=== PATIENT | female | born 1990 | race Caucasian/White ===

== ENCOUNTER 2016-09-15 16:42 | Emergency (ER) | payer BC, MEDICAID ==
[2016-09-15] MEDS ORDERED: Sodium Chloride 0.9% 2.5 ML Syringe FLUSH PRN (17:55)
[2016-09-15] MEDS ORDERED: Sodium Chloride 0.9% 10 ML Syringe FLUSH PRN (17:55)
[2016-09-15] MEDS ORDERED: fentaNYL 100 MCG/2 ML SDV IVPUSH ONE (18:29)
[2016-09-15 18:58] LABS: CHLORIDE,CL 107 mmol/L (98-110); SODIUM,NA 138 mmol/L (136-146)
--- NOTE | 2016-09-15 19:00 | EDM.PDOC ---
ED HPI GI/ABDOMINAL - General Chief Complaint: CATCHER PLUG Problem Stated Complaint: PT HAS PELVIC PAIN Time Seen by Provider: 09/15/16 16:55 Source of Information: Reports: Patient, Family History Limitations: Reports: No limitations - History of Present Illness INITIAL COMMENTS - FREE TEXT/NARRATIVE: HISTORY AND PHYSICAL: [26-year-old female with history of ovarian cysts/pelvic congestion] History of Present Illness: [pain increased for 2 days ] Review of Systems: As per history of present illness and below otherwise all systems reviewed and negative. Past medical history: As per history of present illness and as reviewed below otherwise noncontributory. Surgical history: As per history of present illness and as reviewed below otherwise noncontributory. Social history: No reported history of drug or alcohol abuse. Family history: As per history of present illness and as reviewed below otherwise noncontributory. Physical exam: HEENT: Atraumatic, normocehpalic, pupils reactive, negative for conjunctival pallor or scleral icterus, mucous membranes moist, throat clear, neck supple, nontender, trachea midline. Lungs: Clear to auscultation, breath sounds equal bilaterally, chest non tender. Heart: S1S2, regular, negative for clicks, rubs, or JVD. Abdomen: Soft, nondistended, nontender. Negative for masses or hepatossplenmegaly. Negative for costovertebral tenderness. Pelvis: Stable nontender. Genitourinary: Deferred. Rectal: Deferred Extremities: Atraumatic, negative for cords or calf pain. Neurovascular unremarkable. Neuro: Awake, alert, oriented. Cranial nerves II through XII unremarkable. Cerebellum unremarkable. Motor and sensory unremarkable throughout. Exam nonfocal. Discussed the results of ultrasound with patient 1.5 mm cyst to her left ovary. Have discussed taking her pain medication she is not to take ibuprofen and Mobic together. 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 Timothy HERRERA [facility] [address] [place] [id number] Definitive disposition and diagnosis as appropriate pending reevaluation and review of above. Timing/Duration: Reports: Day(s):, Sudden onset Location: generalized Quality: Reports: ache, cramping Severity: moderate - Related Data Allergies/ADRs: Allergies Allergy/AdvReac Type Severity Reaction Status Date / Time No Known Allergies Allergy Verified 09/15/16 17:11 Home Meds: Home Meds Ibuprofen 600 mg PO ASDIRECTED PRN 09/15/16 [History] Meloxicam [Mobic] 0 mg PO ASDIRECTED 09/15/16 [History] Past Medical History CATCHER PLUG History: Reports: , Other (see below) Other OB/BYN History: Ovarian Cysts Social & Family History - Family History Family Medical History: Noncontributory - Tobacco Use Smoking Status *Q: Never Smoker - Recreational Drug Use Recreational Drug Use: No ED ROS GENERAL - Review of Systems Review Of Systems: ROS reveals no pertinent complaints other than HPI. ED EXAM, GI/ABD - Physical Exam Exam: See Below (see dictation) Course - Vital Signs Last Recorded V/S: Last Vital Signs Temp 36.6 C 09/15/16 16:50 Pulse 75 09/15/16 18:42 Resp 16 09/15/16 18:42 BP 110/72 09/15/16 18:42 Pulse Ox 97 09/15/16 18:42 - Orders/Labs/Meds Orders: Active Orders 24 hr Category Date Time Status Pelvis Non OB Comp [US] Stat Exams 09/15/16 18:54 Taken Sodium Chloride 0.9% [Saline Flush] Med 09/15/16 17:55 Active 10 ml FLUSH ASDIRECTED PRN Sodium Chloride 0.9% [Saline Flush] Med 09/15/16 17:55 Active 2.5 ml FLUSH ASDIRECTED PRN Saline Lock Insert [OM.PC] Stat Oth 09/15/16 17:55 Ordered Medication Orders Sodium Chloride (Saline Flush) 10 ml FLUSH ASDIRECTED PRN PRN Reason: Keep Vein Open Sodium Chloride (Saline Flush) 2.5 ml FLUSH ASDIRECTED PRN PRN Reason: Keep Vein Open Labs: Laboratory Tests 09/15/16 09/15/16 09/15/16 Range/Units 17:51 17:51 18:26 WBC 7.02 (4.0-11.0) K/uL RBC 4.74 (4.30-5.90) M/uL Hgb 13.4 (12.0-16.0) g/dL Hct 41.2 (36.0-46.0) % MCV 86.9 (80.0-98.0) fL MCH 28.3 (27.0-32.0) pg MCHC 32.5 (31.0-37.0) g/dL RDW Std Deviation 50.8 (28.0-62.0) fl RDW Coeff of Iss[place] 16 H (11.0-15.0) % Plt Count 247 (150-400) K/uL MPV 10.10 (7.40-12.00) fL Neut % (Auto) 64.0 (48.0-80.0) % Lymph % (Auto) 27.6 (16.0-40.0) % [place]ila % (Auto) 6.7 (0.0-15.0) % Eos % (Auto) 1.3 (0.0-7.0) % Baso % (Auto) 0.4 (0.0-1.5) % Neut # 4.5 (1.4-5.7) K/uL Lymph # 1.9 (0.6-2.4) K/uL Gila # 0.5 (0.0-0.8) K/uL Eos # 0.1 (0.0-0.7) K/uL Baso # 0.0 (0.0-0.1) K/uL Nucleated RBC % 0.0 /100WBC Nucleated RBCs # 0 K/uL Sodium (136-146) mmol/L Potassium (3.5-5.1) mmol/L Chloride (98-110) mmol/L Carbon Dioxide (21-31) mmol/L BUN (6.0-23.0) mg/dL Creatinine (0.6-1.5) mg/dL Est Cr Clr Drug Dosing mL/min Estimated GFR (MDRD) ml/min Glucose (60-110) mg/dL Calcium (8.8-10.8) mg/dL Total Bilirubin (0.1-1.5) mg/dL AST (5-40) IU/L ALT (8-54) IU/L Alkaline Phosphatase (40-150) Total Protein (6.0-8.0) g/dL Albumin (3.5-5.0) g/dL Globulin (2.0-3.5) g/dL Albumin/Globulin Ratio (1.3-2.8) Urine Color YELLOW Urine Appearance SLT CLOUDY Urine pH 6.0 (5.0-8.0) Ur Specific [place] 1.020 (1.001-1.035) Urine Protein NEGATIVE (NEGATIVE) mg/dL Urine Glucose (UA) NEGATIVE (NEGATIVE) mg/dL Urine Ketones NEGATIVE (NEGATIVE) mg/dL Urine Occult Blood LARGE H (NEGATIVE) Urine Nitrite NEGATIVE (NEGATIVE) Urine Bilirubin NEGATIVE (NEGATIVE) Urine Urobilinogen 0.2 (<2.0) EU/dL Ur Leukocyte Esterase SMALL (NEGATIVE) Urine RBC 250-300 (0-2/HPF) Urine WBC 4-8 (0-5/HPF) Ur Epithelial Cells FEW (NONE-FEW) Urine Bacteria FEW (NEGATIVE) Urine Opiates Screen NEGATIVE (NEGATIVE) Ur Oxycodone Screen NEGATIVE (NEGATIVE) Urine Methadone Screen NEGATIVE (NEGATIVE) Ur Barbiturates Screen NEGATIVE (NEGATIVE) Ur Phencyclidine Scrn NEGATIVE (NEGATIVE) Ur Amphetamine Screen NEGATIVE (NEGATIVE) U Methamphetamines Scrn NEGATIVE (NEGATIVE) U Benzodiazepines Scrn NEGATIVE (NEGATIVE) U Cocaine Metab Screen NEGATIVE (NEGATIVE) U Marijuana (THC) Screen NEGATIVE (NEGATIVE) 09/15/16 Range/Units 18:26 WBC (4.0-11.0) K/uL RBC (4.30-5.90) M/uL Hgb (12.0-16.0) g/dL Hct (36.0-46.0) % MCV (80.0-98.0) fL MCH (27.0-32.0) pg MCHC (31.0-37.0) g/dL RDW Std Deviation (28.0-62.0) fl RDW Coeff of [place] (11.0-15.0) % Plt Count (150-400) K/uL MPV (7.40-12.00) fL Neut % (Auto) (48.0-80.0) % Lymph % (Auto) (16.0-40.0) % [place] % (Auto) (0.0-15.0) % Eos % (Auto) (0.0-7.0) % Baso % (Auto) (0.0-1.5) % Neut # (1.4-5.7) K/uL Lymph # (0.6-2.4) K/uL [place]ila # (0.0-0.8) K/uL Eos # (0.0-0.7) K/uL Baso # (0.0-0.1) K/uL Nucleated RBC % /100WBC Nucleated RBCs # K/uL Sodium 138 (136-146) mmol/L Potassium 4.0 (3.5-5.1) mmol/L Chloride 107 (98-110) mmol/L Carbon Dioxide 21 (21-31) mmol/L BUN 10 (6.0-23.0) mg/dL Creatinine 0.8 (0.6-1.5) mg/dL Est Cr Clr Drug Dosing 88.93 mL/min Estimated GFR (MDRD) > 60.0 ml/min Glucose 86 (60-110) mg/dL Calcium 9.1 (8.8-10.8) mg/dL Total Bilirubin 0.3 (0.1-1.5) mg/dL AST 20 (5-40) IU/L ALT 12 (8-54) IU/L Alkaline Phosphatase 68 (40-150) Total Protein 7.6 (6.0-8.0) g/dL Albumin 4.2 (3.5-5.0) g/dL Globulin 3.4 (2.0-3.5) g/dL Albumin/Globulin Ratio 1.2 L (1.3-2.8) Urine Color Urine Appearance Urine pH (5.0-8.0) Ur Specific [place] (1.001-1.035) Urine Protein (NEGATIVE) mg/dL Urine Glucose (UA) (NEGATIVE) mg/dL Urine Ketones (NEGATIVE) mg/dL Urine Occult Blood (NEGATIVE) Urine Nitrite (NEGATIVE) Urine Bilirubin (NEGATIVE) Urine Urobilinogen (<2.0) EU/dL Ur Leukocyte Esterase (NEGATIVE) Urine RBC (0-2/HPF) Urine WBC (0-5/HPF) Ur Epithelial Cells (NONE-FEW) Urine Bacteria (NEGATIVE) Urine Opiates Screen (NEGATIVE) Ur Oxycodone Screen (NEGATIVE) Urine Methadone Screen (NEGATIVE) Ur Barbiturates Screen (NEGATIVE) Ur Phencyclidine Scrn (NEGATIVE) Ur Amphetamine Screen (NEGATIVE) U Methamphetamines Scrn (NEGATIVE) U Benzodiazepines Scrn (NEGATIVE) U Cocaine Metab Screen (NEGATIVE) U Marijuana (THC) Screen (NEGATIVE) Meds: Medications Generic Name Dose Route Start Last Admin Trade Name Freq PRN Reason Stop Dose Admin Sodium Chloride 10 ml 09/15/16 17:55 Saline Flush FLUSH ASDIRECTED PRN Keep Vein Open Sodium Chloride 2.5 ml 09/15/16 17:55 Saline Flush FLUSH ASDIRECTED PRN Keep Vein Open Discontinued Medications Generic Name Dose Route Start Last Admin Trade Name Freq PRN Reason Stop Dose Admin Fentanyl 50 mcg 09/15/16 18:29 09/15/16 18:38 Sublimaze IVPUSH 09/15/16 18:30 50 mcg ONETIME ONE Administration Departure - Departure Time of Disposition: 20:13 Disposition: Home, Self-Care 01 Condition: good Clinical Impression: Ovarian cyst Qualifiers: Laterality: left Qualified Code(s): N83.202 - Unspecified ovarian cyst, left side Referrals: PCP,None [Primary Care Provider] - Noah Aguirre MD [Physician] - Forms: ED Department Discharge Additional Instructions: The following information is given to patients seen in the emergency department who are being discharged to home. This information is to outline your options for follow-up care. We provide all patients seen in our emergency department with a follow-up referral. The need for follow-up, as well as the timing and circumstances, are variable depending upon the specifics of your emergency department visit. If you don't have a primary care physician on staff, we will provide you with a referral. We always advise you to contact your personal physician following an emergency department visit to inform them of the circumstance of the visit and for follow-up with them and/or the need for any referrals to a consulting specialist. The emergency department will also refer you to a specialist when appropriate. This referral assures that you have the opportunity for followup care with a specialist. All of these measure are taken in an effort to provide you with optimal care, which includes your followup. Under all circumstances we always encourage you to contact your private physician who remains a resource for coordinating your care. When calling for followup care, please make the office aware that this follow-up is from your recent emergency room visit. If for any reason you are refused follow-up, please contact the [facility] emergency department at and asked to speak to the emergency department charge nurse. Followup with Dr. Aguirre is recommended - My Orders Last 24 Hours: My Active Orders 09/15/16 17:55 Sodium Chloride 0.9% [Saline Flush] 10 ml FLUSH ASDIRECTED PRN Sodium Chloride 0.9% [Saline Flush] 2.5 ml FLUSH ASDIRECTED PRN Saline Lock Insert [OM.PC] Stat 09/15/16 18:54 Pelvis Non OB Comp [US] Stat - Assessment/Plan Last 24 Hours: My Active Orders 09/15/16 17:55 Sodium Chloride 0.9% [Saline Flush] 10 ml FLUSH ASDIRECTED PRN Sodium Chloride 0.9% [Saline Flush] 2.5 ml FLUSH ASDIRECTED PRN Saline Lock Insert [OM.PC] Stat 09/15/16 18:54 Pelvis Non OB Comp [US] Stat
[2016-09-15 20:53] VITALS: BP 103/67
--- NOTE | 2016-09-18 19:14 | US ---
EXAM DATE: 09/15/16 PATIENT'S AGE: 26 Patient: ALBERT JOHNSON Facility: [place], [place] Site . Site : 1990 Study: US Pelvis [id number]/10/2017 7:54:02 PM Ordering Physician: Doctor Milner Final Report: HISTORY: Pelvic pain. FINDINGS: Multiple grayscale static images from a transvaginal pelvic ultrasound were evaluated. Uterus measures 8.5 x 4.3 x 5.6 cm. The echotexture is homogeneous. The endometrial stripe is 14 mm in thickness. There is a small amount of fluid in the cul-de-sac. The right ovary measures 3.8 x 2.4 x 2.2 cm. It is normal appearance with normal blood flow. The left ovary measures 3.0 x 2.1 x 2.2 cm. It contains a dominant 1.5 cm follicle. There is normal blood flow within the left ovary. IMPRESSION: 1. Dominant follicle within the left ovary. 2. No evidence of torsion. 3. Small amount of free fluid in the cul de sac, most likely physiologic. Dictated by Rachel Toure MD @ 09/15/2016 8:18:14 PM Dictated by: Rachel Toure MD @ 09/15/2016 20:18:20 (Electronic Signature) Report Signed by Proxy and Original Signed Document filed in the Medical Record. MTDD
== END 2016-09-15 20:46 | disposition home or self-care (01) ==
LOC: MW.ED 16:42
DX: N83.202 Unspecified ovarian cyst, left side (principal)
CPT/HCPCS: 36415; 76856; 80053; 80305; 81001; 85025; 96374; 99284; J3010

== ENCOUNTER 2016-10-01 12:26 | Inpatient (IN) | payer BC, MEDICAID ==
[2016-10-01] MEDS ORDERED: Sodium Chloride 0.9% 2.5 ML Syringe FLUSH PRN (13:09)
[2016-10-01] MEDS ORDERED: LORazepam 2 MG/ML MDV IVPUSH ONE (13:09)
[2016-10-01] MEDS ORDERED: Sodium Chloride 0.9% 10 ML Syringe FLUSH PRN (13:09)
[2016-10-01] MEDS ORDERED: Sodium Chloride 0.9% 1,000 ML IV ONE ×2 (13:09→15:02)
[2016-10-01] MEDS ORDERED: Ondansetron 4 MG/2 ML SDV IVPUSH ONE (13:09)
--- NOTE | 2016-10-01 13:16 | EDM.PDOC ---
ED HPI GENERAL MEDICAL PROBLEM - General Chief Complaint: Drug or Alcohol Abuse Stated Complaint: ALCOHOL WITHDRAWLS Time Seen by Provider: 10/01/16 12:30 - History of Present Illness INITIAL COMMENTS - FREE TEXT/NARRATIVE: HISTORY AND PHYSICAL: History of present illness: The patient is a 26-year-old female with a history of ovarian cysts and presents with her significant other requesting help with alcohol use/abuse. According to the patient and family she has had issues with alcohol use and she is gone in waves where she'll drink heavily and then she will not drink. THis most recent binge is the worst that she has ever had pretty much all day, hard liquor or beer. The patient has not been eating properly and has had no appetite and she's had intermittent vomiting. She had several falls about 2 weeks ago when she fell out of bed she currently has not had a fall within the last 5 days has no neck pain but does have a posterior headache on and off. She denies any extremity complaints and has upper abdominal discomfort but it's more of a nauseated feeling. She vomits intermittently and says the last time she vomited was prior to coming here and it was what she tried to eat. She did drink 3 beers prior to coming here today. Patient states she went through a rehabilitation program about 2-3 years ago in [place] and has not done anything else patient since that time. Patient denies any drug use and is very tearful on my evaluation. According to the family the right bedside with her drinking she becomes more and more anxious often times not wanting to leave the house for long periods of time even going to the market. The family states it was really challenging even to get her out of the house today to come here but she says that she does want help. Patient states she has irregular periods and isn't sure if she is Review of systems: As per history of present illness and below otherwise all systems reviewed and negative. Past medical history: As per history of present illness and as reviewed below otherwise noncontributory. Surgical history: As per history of present illness and as reviewed below otherwise noncontributory. Social history: No reported history of drug or alcohol abuse. Family history: As per history of present illness and as reviewed below otherwise noncontributory. Physical exam: General: Well-developed thin female who is nontoxic and somewhat tearful and anxious in the room. Vital signs been reviewed by me. HEENT: Atraumatic, normocephalic, pupils reactive, negative for conjunctival pallor or scleral icterus, mucous membranes tacky, throat clear, neck supple, nontender, trachea midline. There are no palpable bony defects or swelling of the scalp there are no midline step-offs tenderness or defects of the cervical spine Lungs: Clear to auscultation, breath sounds equal bilaterally, chest nontender. Heart: S1S2, regular rhythm and tachycardic rate of my evaluation, negative for clicks, rubs, or JVD. Abdomen: Soft, nondistended, mild tenderness at the left upper abdominal area at the liver edge but bowel sounds are normoactive and there is no rebound guarding or tympany Negative for masses or hepatosplenomegaly. Negative for costovertebral tenderness. Pelvis: Stable nontender. Genitourinary: Deferred. Rectal: Deferred. Extremities: Atraumatic, negative for cords or calf pain. Neurovascular unremarkable. Full range of motion without any defects or deficits Neuro: Awake, alert, oriented. Cranial nerves II through XII unremarkable. Cerebellum unremarkable. Motor and sensory unremarkable throughout. Exam nonfocal. There is no tremulousness on my evaluation and the patient ambulated into the ED without assistance Back: There are no midline step-offs tenderness defects of the thoracic or lumbar spine and no soft tissue injuries are appreciated Diagnostics: EKG CBC CMP amylase lipase EtOH troponin UA UCG UDS magnesium level CT head Therapeutics: IV O2 monitor IV fluids Zofran Ativan banana bag [id number]: Case was discussed with our hospitalist , who is here in the ER and we'll admit the patient for detox. And currently giving her a second bag of IV fluids and the hospitalist will give her a banana bag on the floor. Impression: Acute detoxification from alcohol/history of alcohol use and abuse Definitive disposition and diagnosis as appropriate pending reevaluation and review of above. 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 ED EXAM, GENERAL - Physical Exam Exam: See Below (See dictation) Course - Vital Signs Last Recorded V/S: Last Vital Signs Temp 37.2 C 10/01/16 15:16 Pulse 109 H 10/01/16 15:16 Resp 16 10/01/16 15:16 BP 115/80 10/01/16 15:16 Pulse Ox 97 10/01/16 15:16 - Orders/Labs/Meds Orders: Active Orders 24 hr Category Date Time Status Cardiac Monitoring [RC] . DIRECTED Care 10/01/16 13:08 Active EKG Documentation Completion [RC] STAT Care 10/01/16 13:08 Active Pulse Oximetry [RC] ASDIRECTED Care 10/01/16 13:08 Active Head wo Cont [CT] Stat Exams 10/01/16 13:16 Taken Sodium Chloride 0.9% [Normal Saline] 1,000 ml Med 10/01/16 15:02 Active IV STAT Sodium Chloride 0.9% [Saline Flush] Med 10/01/16 13:09 Active 10 ml FLUSH ASDIRECTED PRN Sodium Chloride 0.9% [Saline Flush] Med 10/01/16 13:09 Active 2.5 ml FLUSH ASDIRECTED PRN Saline Lock Insert [OM.PC] Stat Oth 10/01/16 13:08 Ordered Medication Orders Sodium Chloride (Normal Saline) 1,000 mls @ 999 mls/hr IV STAT ONE Stop: 10/01/16 16:02 Last Admin: 10/01/16 15:15 Dose: 999 mls/hr Sodium Chloride (Saline Flush) 10 ml FLUSH ASDIRECTED PRN PRN Reason: Keep Vein Open Last Admin: 10/01/16 13:21 Dose: 10 ml Sodium Chloride (Saline Flush) 2.5 ml FLUSH ASDIRECTED PRN PRN Reason: Keep Vein Open Last Admin: 10/01/16 13:21 Dose: 2.5 ml Labs: Laboratory Tests 10/01/16 10/01/16 10/01/16 Range/Units 13:10 13:10 13:10 WBC (4.0-11.0) K/uL RBC (4.30-5.90) M/uL Hgb (12.0-16.0) g/dL Hct (36.0-46.0) % MCV (80.0-98.0) fL MCH (27.0-32.0) pg MCHC (31.0-37.0) g/dL RDW Std Deviation (28.0-62.0) fl RDW Coeff of [place] (11.0-15.0) % Plt Count (150-400) K/uL MPV (7.40-12.00) fL Neut % (Auto) (48.0-80.0) % Lymph % (Auto) (16.0-40.0) % [place] % (Auto) (0.0-15.0) % Eos % (Auto) (0.0-7.0) % Baso % (Auto) (0.0-1.5) % Neut # (Auto) (1.4-5.7) K/uL Lymph # (Auto) (0.6-2.4) K/uL [place] # (Auto) (0.0-0.8) K/uL Eos # (Auto) (0.0-0.7) K/uL Baso # (Auto) (0.0-0.1) K/uL Nucleated RBC % /100WBC Nucleated RBCs # K/uL Sodium (136-146) mmol/L Potassium (3.5-5.1) mmol/L Chloride (98-110) mmol/L Carbon Dioxide (21-31) mmol/L BUN (6.0-23.0) mg/dL Creatinine (0.6-1.5) mg/dL Est Cr Clr Drug Dosing mL/min Estimated GFR (MDRD) ml/min Glucose (60-110) mg/dL Calcium (8.8-10.8) mg/dL Magnesium (1.5-2.3) mEq/L Total Bilirubin (0.1-1.5) mg/dL AST (5-40) IU/L ALT (8-54) IU/L Alkaline Phosphatase (40-150) Troponin I (0.0-0.29) NG/ML Total Protein (6.0-8.0) g/dL Albumin (3.5-5.0) g/dL Globulin (2.0-3.5) g/dL Albumin/Globulin Ratio (1.3-2.8) Amylase (10-90) U/L Lipase (7-80) U/L Urine Color YELLOW Urine Appearance CLEAR Urine pH 5.5 (5.0-8.0) Ur Specific [place] 1.010 (1.001-1.035) Urine Protein NEGATIVE (NEGATIVE) mg/dL Urine Glucose (UA) NEGATIVE (NEGATIVE) mg/dL Urine Ketones NEGATIVE (NEGATIVE) mg/dL Urine Occult Blood NEGATIVE (NEGATIVE) Urine Nitrite NEGATIVE (NEGATIVE) Urine Bilirubin NEGATIVE (NEGATIVE) Urine Urobilinogen 0.2 (<2.0) EU/dL Ur Leukocyte Esterase NEGATIVE (NEGATIVE) Urine RBC NONE SEEN (0-2/HPF) Urine WBC 0-2 (0-5/HPF) Ur Epithelial Cells 0-2 (NONE-FEW) Urine Bacteria NOT SEEN (NEGATIVE) Urine HCG, Qual NEGATIVE (NEGATIVE) Urine Opiates Screen NEGATIVE (NEGATIVE) Ur Oxycodone Screen NEGATIVE (NEGATIVE) Urine Methadone Screen NEGATIVE (NEGATIVE) Ur Barbiturates Screen NEGATIVE (NEGATIVE) Ur Phencyclidine Scrn NEGATIVE (NEGATIVE) Ur Amphetamine Screen NEGATIVE (NEGATIVE) U Methamphetamines Scrn NEGATIVE (NEGATIVE) U Benzodiazepines Scrn NEGATIVE (NEGATIVE) U Cocaine Metab Screen NEGATIVE (NEGATIVE) U Marijuana (THC) Screen NEGATIVE (NEGATIVE) Ethyl Alcohol mg/dL 10/01/16 10/01/16 10/01/16 Range/Units 13:25 13:25 13:25 WBC 7.25 (4.0-11.0) K/uL RBC 4.88 (4.30-5.90) M/uL Hgb 14.1 (12.0-16.0) g/dL Hct 41.5 (36.0-46.0) % MCV 85.0 (80.0-98.0) fL MCH 28.9 (27.0-32.0) pg MCHC 34.0 (31.0-37.0) g/dL RDW Std Deviation 47.0 (28.0-62.0) fl RDW Coeff of [place] 15 (11.0-15.0) % Plt Count 346 (150-400) K/uL MPV 9.60 (7.40-12.00) fL Neut % (Auto) 63.8 (48.0-80.0) % Lymph % (Auto) 32.3 (16.0-40.0) % [place] % (Auto) 2.6 (0.0-15.0) % Eos % (Auto) 0.3 (0.0-7.0) % Baso % (Auto) 1.0 (0.0-1.5) % Neut # (Auto) 4.6 (1.4-5.7) K/uL Lymph # (Auto) 2.3 (0.6-2.4) K/uL [place] # (Auto) 0.2 (0.0-0.8) K/uL Eos # (Auto) 0.0 (0.0-0.7) K/uL Baso # (Auto) 0.1 (0.0-0.1) K/uL Nucleated RBC % 0.0 /100WBC Nucleated RBCs # 0 K/uL Sodium 139 (136-146) mmol/L Potassium 3.9 (3.5-5.1) mmol/L Chloride 108 (98-110) mmol/L Carbon Dioxide 16 L (21-31) mmol/L BUN 16 (6.0-23.0) mg/dL Creatinine 0.8 (0.6-1.5) mg/dL Est Cr Clr Drug Dosing 88.25 mL/min Estimated GFR (MDRD) > 60.0 ml/min Glucose 95 (60-110) mg/dL Calcium 8.3 L (8.8-10.8) mg/dL Magnesium 1.8 (1.5-2.3) mEq/L Total Bilirubin 0.5 (0.1-1.5) mg/dL AST 31 (5-40) IU/L ALT 17 (8-54) IU/L Alkaline Phosphatase 73 (40-150) Troponin I < 0.10 (0.0-0.29) NG/ML Total Protein 7.6 (6.0-8.0) g/dL Albumin 4.1 (3.5-5.0) g/dL Globulin 3.5 (2.0-3.5) g/dL Albumin/Globulin Ratio 1.2 L (1.3-2.8) Amylase 26 (10-90) U/L Lipase 47 (7-80) U/L Urine Color Urine Appearance Urine pH (5.0-8.0) Ur Specific [place] (1.001-1.035) Urine Protein (NEGATIVE) mg/dL Urine Glucose (UA) (NEGATIVE) mg/dL Urine Ketones (NEGATIVE) mg/dL Urine Occult Blood (NEGATIVE) Urine Nitrite (NEGATIVE) Urine Bilirubin (NEGATIVE) Urine Urobilinogen (<2.0) EU/dL Ur Leukocyte Esterase (NEGATIVE) Urine RBC (0-2/HPF) Urine WBC (0-5/HPF) Ur Epithelial Cells (NONE-FEW) Urine Bacteria (NEGATIVE) Urine HCG, Qual (NEGATIVE) Urine Opiates Screen (NEGATIVE) Ur Oxycodone Screen (NEGATIVE) Urine Methadone Screen (NEGATIVE) Ur Barbiturates Screen (NEGATIVE) Ur Phencyclidine Scrn (NEGATIVE) Ur Amphetamine Screen (NEGATIVE) U Methamphetamines Scrn (NEGATIVE) U Benzodiazepines Scrn (NEGATIVE) U Cocaine Metab Screen (NEGATIVE) U Marijuana (THC) Screen (NEGATIVE) Ethyl Alcohol 231.4 mg/dL Meds: Medications Generic Name Dose Route Start Last Admin Trade Name Freq PRN Reason Stop Dose Admin Sodium Chloride 1,000 mls @ 999 mls/hr 10/01/16 15:02 10/01/16 15:15 Normal Saline IV 10/01/16 16:02 999 mls/hr STAT ONE Administration Sodium Chloride 10 ml 10/01/16 13:09 10/01/16 13:21 Saline Flush FLUSH 10 ml ASDIRECTED PRN Administration Keep Vein Open Sodium Chloride 2.5 ml 10/01/16 13:09 10/01/16 13:21 Saline Flush FLUSH 2.5 ml ASDIRECTED PRN Administration Keep Vein Open Discontinued Medications Generic Name Dose Route Start Last Admin Trade Name Freq PRN Reason Stop Dose Admin Sodium Chloride 1,000 mls @ 999 mls/hr 10/01/16 13:09 10/01/16 13:21 Normal Saline IV 10/01/16 14:09 999 mls/hr STAT ONE Administration Lorazepam 1 mg 10/01/16 13:09 10/01/16 13:20 Ativan IVPUSH 10/01/16 13:10 1 mg ONETIME ONE Administration Ondansetron HCl 4 mg 10/01/16 13:09 10/01/16 13:20 Zofran IVPUSH 10/01/16 13:10 4 mg ONETIME ONE Administration Departure - Departure Time of Disposition: 15:21 Disposition: Admitted As Inpatient 67 Condition: good Clinical Impression: Alcohol abuse Alcohol withdrawal syndrome Qualifiers: Complication of substance-induced condition: uncomplicated Qualified Code(s): F10.230 - Alcohol dependence with withdrawal, uncomplicated Forms: ED Department Discharge - My Orders Last 24 Hours: My Active Orders 10/01/16 13:08 Cardiac Monitoring [RC] . DIRECTED EKG Documentation Completion [RC] STAT Pulse Oximetry [RC] ASDIRECTED Saline Lock Insert [OM.PC] Stat 10/01/16 13:09 Sodium Chloride 0.9% [Saline Flush] 10 ml FLUSH ASDIRECTED PRN Sodium Chloride 0.9% [Saline Flush] 2.5 ml FLUSH ASDIRECTED PRN 10/01/16 13:16 Head wo Cont [CT] Stat 10/01/16 15:02 Sodium Chloride 0.9% [Normal Saline] 1,000 ml IV STAT - Assessment/Plan Last 24 Hours: My Active Orders 10/01/16 13:08 Cardiac Monitoring [RC] . DIRECTED EKG Documentation Completion [RC] STAT Pulse Oximetry [RC] ASDIRECTED Saline Lock Insert [OM.PC] Stat 10/01/16 13:09 Sodium Chloride 0.9% [Saline Flush] 10 ml FLUSH ASDIRECTED PRN Sodium Chloride 0.9% [Saline Flush] 2.5 ml FLUSH ASDIRECTED PRN 10/01/16 13:16 Head wo Cont [CT] Stat 10/01/16 15:02 Sodium Chloride 0.9% [Normal Saline] 1,000 ml IV STAT
[2016-10-01 13:59] LABS: CHLORIDE,CL 108 mmol/L (98-110); SODIUM,NA 139 mmol/L (136-146)
[2016-10-01] MEDS ORDERED: LORazepam 2 MG/ML MDV IM PRN (15:26)
[2016-10-01] MEDS ORDERED: Pantoprazole 40 MG Vial IVPUSH SCH (15:30)
--- NOTE | 2016-10-01 15:39 | PCM.HP ---
H&P History of Present Illness - General Date of Service: 10/01/16 Admit Problem/Dx: Admission Diagnosis/Problem Admission Diagnosis/Problem Alcohol withdrawal syndrome Source of Information: Patient, Provider - History of Present Illness Initial Comments - Free Text/Narative: she presents to the ED . She has been depressed and has been drinking alcohol. See Dr Almaraz's note. Left Chest Pain Score (Numeric/FACES): 6 - Related Data Allergies/Adverse Reactions: Allergies Allergy/AdvReac Type Severity Reaction Status Date / Time No Known Allergies Allergy Verified 09/15/16 17:11 Home Medications: Home Meds Ibuprofen 600 mg PO ASDIRECTED PRN 09/15/16 [History] Meloxicam [Mobic] 0 mg PO ASDIRECTED 09/15/16 [History] Past Medical History - Past Health History Medical/Surgical History: Denies Medical/Surgical History Cardiovascular History: Reports: None, Other (see below) (history of mitral valve prolapse). 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 She states that she has not used heroin for the past eight months.), Other (see below) (she states that she has been depressed since losing custody of her children about a year ago.) Endocrine/Metabolic History: Denies: Sal's disease, Diabetes, type I, Diabetes, type II Oncologic (Cancer) History: Reports: None - Past Surgical History Female Surgical History: Reports: section Social & Family History - Family History Family Medical History: Noncontributory - Tobacco Use Smoking Status *Q: Never Smoker Second Hand Smoke Exposure: Yes - Caffeine Use Caffeine Use: Reports: Soda - Alcohol Use Days Per Week of Alcohol Use: 7 Number of Drinks Per Day: 15 Total Drinks Per Week: 105 Date of Last Drink: 10/01/16 Time of Last Drink: 11:30 Alcohol Use Comment: as per Dr Almaraz's note - Recreational Drug Use Recreational Drug Use: No Drug Use in Last 12 Months: Yes Recreational Drug Type: Reports: Heroin, Marijuana/Hashish Recreational Drug Use Frequency: Weekly H&P Review of Systems - Review of Systems: Review Of Systems: See Below General: Denies: fever Pulmonary: Denies: Shortness of Breath, Wheezing Cardiovascular: Denies: chest pain Gastrointestinal: Reports: Abdominal pain (mild epigastric pain), Vomiting Genitourinary: Denies: dysuria, frequency Skin: Denies: cyanosis Psychiatric: Reports: depression, anxiety Review of Systems Comment:: In the past when she has tried to stop drinking alcohol she has had some hallucinations Exam - Exam Exam: See Below - Vital Signs Vital Signs: Last Vital Signs Temp 98.9 F 10/01/16 15:16 Pulse 109 H 10/01/16 15:16 Resp 16 10/01/16 15:16 BP 115/80 10/01/16 15:16 Pulse Ox 97 10/01/16 15:16 Weight: 52 kg - Exam General: alert, oriented, cooperative HEENT: EOMI Neck: supple, trachea midline Lungs: Clear to auscultation, Normal respiratory effort Cardiovascular: regular rate, regular rhythm Abdomen: soft, tenderness (very mild epigastric tenderness). No: peritoneal signs, distention Rectal (Female) Exam: Deferred Neurological: cranial nerves intact Neuro Extensive - Mental Status: alert, oriented x3, normal mood/affect Neuro Extensive - Motor, Sensory, Reflexes: CN II-XII intact Psychiatric: alert (no tremor) - Patient Data Lab Results last 24 hrs: Laboratory Results - last 24 hr 10/01/16 10/01/16 10/01/16 Range/Units 13:10 13:10 13:10 WBC (4.0-11.0) K/uL RBC (4.30-5.90) M/uL Hgb (12.0-16.0) g/dL Hct (36.0-46.0) % MCV (80.0-98.0) fL MCH (27.0-32.0) pg MCHC (31.0-37.0) g/dL RDW Std Deviation (28.0-62.0) fl RDW Coeff of Issa (11.0-15.0) % Plt Count (150-400) K/uL MPV (7.40-12.00) fL Neut % (Auto) (48.0-80.0) % Lymph % (Auto) (16.0-40.0) % [place] % (Auto) (0.0-15.0) % Eos % (Auto) (0.0-7.0) % Baso % (Auto) (0.0-1.5) % Neut # (Auto) (1.4-5.7) K/uL Lymph # (Auto) (0.6-2.4) K/uL [place] # (Auto) (0.0-0.8) K/uL Eos # (Auto) (0.0-0.7) K/uL Baso # (Auto) (0.0-0.1) K/uL Nucleated RBC % /100WBC Nucleated RBCs # K/uL Sodium (136-146) mmol/L Potassium (3.5-5.1) mmol/L Chloride (98-110) mmol/L Carbon Dioxide (21-31) mmol/L BUN (6.0-23.0) mg/dL Creatinine (0.6-1.5) mg/dL Est Cr Clr Drug Dosing mL/min Estimated GFR (MDRD) ml/min Glucose (60-110) mg/dL Calcium (8.8-10.8) mg/dL Magnesium (1.5-2.3) mEq/L Total Bilirubin (0.1-1.5) mg/dL AST (5-40) IU/L ALT (8-54) IU/L Alkaline Phosphatase (40-150) Troponin I (0.0-0.29) NG/ML Total Protein (6.0-8.0) g/dL Albumin (3.5-5.0) g/dL Globulin (2.0-3.5) g/dL Albumin/Globulin Ratio (1.3-2.8) Amylase (10-90) U/L Lipase (7-80) U/L Urine Color YELLOW Urine Appearance CLEAR Urine pH 5.5 (5.0-8.0) Ur Specific [place] 1.010 (1.001-1.035) Urine Protein NEGATIVE (NEGATIVE) mg/dL Urine Glucose (UA) NEGATIVE (NEGATIVE) mg/dL Urine Ketones NEGATIVE (NEGATIVE) mg/dL Urine Occult Blood NEGATIVE (NEGATIVE) Urine Nitrite NEGATIVE (NEGATIVE) Urine Bilirubin NEGATIVE (NEGATIVE) Urine Urobilinogen 0.2 (<2.0) EU/dL Ur Leukocyte Esterase NEGATIVE (NEGATIVE) Urine RBC NONE SEEN (0-2/HPF) Urine WBC 0-2 (0-5/HPF) Ur Epithelial Cells 0-2 (NONE-FEW) Urine Bacteria NOT SEEN (NEGATIVE) Urine HCG, Qual NEGATIVE (NEGATIVE) Urine Opiates Screen NEGATIVE (NEGATIVE) Ur Oxycodone Screen NEGATIVE (NEGATIVE) Urine Methadone Screen NEGATIVE (NEGATIVE) Ur Barbiturates Screen NEGATIVE (NEGATIVE) Ur Phencyclidine Scrn NEGATIVE (NEGATIVE) Ur Amphetamine Screen NEGATIVE (NEGATIVE) U Methamphetamines Scrn NEGATIVE (NEGATIVE) U Benzodiazepines Scrn NEGATIVE (NEGATIVE) U Cocaine Metab Screen NEGATIVE (NEGATIVE) U Marijuana (THC) Screen NEGATIVE (NEGATIVE) Ethyl Alcohol mg/dL 10/01/16 10/01/16 10/01/16 Range/Units 13:25 13:25 13:25 WBC 7.25 (4.0-11.0) K/uL RBC 4.88 (4.30-5.90) M/uL Hgb 14.1 (12.0-16.0) g/dL Hct 41.5 (36.0-46.0) % MCV 85.0 (80.0-98.0) fL MCH 28.9 (27.0-32.0) pg MCHC 34.0 (31.0-37.0) g/dL RDW Std Deviation 47.0 (28.0-62.0) fl RDW Coeff of [place] 15 (11.0-15.0) % Plt Count 346 (150-400) K/uL MPV 9.60 (7.40-12.00) fL Neut % (Auto) 63.8 (48.0-80.0) % Lymph % (Auto) 32.3 (16.0-40.0) % [place] % (Auto) 2.6 (0.0-15.0) % Eos % (Auto) 0.3 (0.0-7.0) % Baso % (Auto) 1.0 (0.0-1.5) % Neut # (Auto) 4.6 (1.4-5.7) K/uL Lymph # (Auto) 2.3 (0.6-2.4) K/uL [place] # (Auto) 0.2 (0.0-0.8) K/uL Eos # (Auto) 0.0 (0.0-0.7) K/uL Baso # (Auto) 0.1 (0.0-0.1) K/uL Nucleated RBC % 0.0 /100WBC Nucleated RBCs # 0 K/uL Sodium 139 (136-146) mmol/L Potassium 3.9 (3.5-5.1) mmol/L Chloride 108 (98-110) mmol/L Carbon Dioxide 16 L (21-31) mmol/L BUN 16 (6.0-23.0) mg/dL Creatinine 0.8 (0.6-1.5) mg/dL Est Cr Clr Drug Dosing 88.25 mL/min Estimated GFR (MDRD) > 60.0 ml/min Glucose 95 (60-110) mg/dL Calcium 8.3 L (8.8-10.8) mg/dL Magnesium 1.8 (1.5-2.3) mEq/L Total Bilirubin 0.5 (0.1-1.5) mg/dL AST 31 (5-40) IU/L ALT 17 (8-54) IU/L Alkaline Phosphatase 73 (40-150) Troponin I < 0.10 (0.0-0.29) NG/ML Total Protein 7.6 (6.0-8.0) g/dL Albumin 4.1 (3.5-5.0) g/dL Globulin 3.5 (2.0-3.5) g/dL Albumin/Globulin Ratio 1.2 L (1.3-2.8) Amylase 26 (10-90) U/L Lipase 47 (7-80) U/L Urine Color Urine Appearance Urine pH (5.0-8.0) Ur Specific [place] (1.001-1.035) Urine Protein (NEGATIVE) mg/dL Urine Glucose (UA) (NEGATIVE) mg/dL Urine Ketones (NEGATIVE) mg/dL Urine Occult Blood (NEGATIVE) Urine Nitrite (NEGATIVE) Urine Bilirubin (NEGATIVE) Urine Urobilinogen (<2.0) EU/dL Ur Leukocyte Esterase (NEGATIVE) Urine RBC (0-2/HPF) Urine WBC (0-5/HPF) Ur Epithelial Cells (NONE-FEW) Urine Bacteria (NEGATIVE) Urine HCG, Qual (NEGATIVE) Urine Opiates Screen (NEGATIVE) Ur Oxycodone Screen (NEGATIVE) Urine Methadone Screen (NEGATIVE) Ur Barbiturates Screen (NEGATIVE) Ur Phencyclidine Scrn (NEGATIVE) Ur Amphetamine Screen (NEGATIVE) U Methamphetamines Scrn (NEGATIVE) U Benzodiazepines Scrn (NEGATIVE) U Cocaine Metab Screen (NEGATIVE) U Marijuana (THC) Screen (NEGATIVE) Ethyl Alcohol 231.4 mg/dL Result Diagrams: 10/01/16 13:25 10/01/16 13:25 *Q Meaningful Use (ADM) - VTE *Q VTE Criteria *Q: - Stroke *Q Stroke Criteria *Q: - AMI *Q AMI Criteria *Q: - Problem List (1) Alcohol abuse SNOMED Code(s): 57957353 ICD Code: F10.10 - ALCOHOL ABUSE, UNCOMPLICATED Status: Acute Current Visit: Yes Problem List Initiated/Reviewed/Updated: Yes Orders Last 24hrs: Active Orders 24 hr Category Date Time Status Patient Status [ADT] Stat ADT 10/01/16 15:22 Active Cardiac Monitoring [RC] . DIRECTED Care 10/01/16 13:08 Active Communication Order [RC] STAT Care 10/01/16 15:32 Ordered EKG Documentation Completion [RC] STAT Care 10/01/16 13:08 Active Oxygen Therapy [RC] PRN Care 10/01/16 15:26 Ordered Pulse Oximetry [RC] ASDIRECTED Care 10/01/16 13:08 Active VTE/DVT Education [RC] PER UNIT ROUTINE Care 10/01/16 15:26 Ordered Vital Signs [RC] Q4H Care 10/01/16 15:26 Ordered Regular Diet [DIET] Diet 10/01/16 Dinner Ordered Head wo Cont [CT] Stat Exams 10/01/16 13:16 Taken CBC WITH AUTO DIFF [HEME] AM Lab 10/02/16 05:11 Ordered COMPREHENSIVE METABOLIC PN,CMP [CHEM] AM Lab 10/02/16 05:11 Ordered MAGNESIUM [CHEM] AM Lab 10/02/16 05:11 Ordered LORazepam [Ativan] Med 10/01/16 15:26 Ordered See Protocol IM Q6H PRN MVI, Adult with Vitamin K [Infuvite Adult] 10 ml Med 10/01/16 15:31 Ordered Thiamine [Vitamin B-1] 100 mg Folic Acid 1 mg Sodium Chloride 0.9% [Normal Saline] 1,000 ml IV DAILY Pantoprazole [Protonix IV] Med 10/01/16 15:30 Ordered 40 mg IVPUSH BID Sodium Chloride 0.9% @ 125 MLS/HR (1000ml) Med 10/01/16 15:30 Ordered Sodium Chloride 0.9% [Normal Saline] 1,000 ml IV ASDIRECTED Sodium Chloride 0.9% [Normal Saline] 1,000 ml Med 10/01/16 15:02 Active IV STAT Sodium Chloride 0.9% [Saline Flush] Med 10/01/16 13:09 Active 10 ml FLUSH ASDIRECTED PRN Sodium Chloride 0.9% [Saline Flush] Med 10/01/16 13:09 Active 2.5 ml FLUSH ASDIRECTED PRN Temazepam [Restoril] Med 10/01/16 15:26 Ordered 15 mg PO BEDTIME PRN Saline Lock Insert [OM.PC] Stat Oth 10/01/16 13:08 Ordered Resuscitation Status Routine Resus Stat 10/01/16 15:26 Ordered Medication Orders Sodium Chloride (Normal Saline) 1,000 mls @ 999 mls/hr IV STAT ONE Stop: 10/01/16 16:02 Last Admin: 10/01/16 15:15 Dose: 999 mls/hr Multivitamins/Minerals 10 ml/Thiamine HCl 100 mg/ Folic Acid 1 mg/ Sodium Chloride 1,011.2 mls @ 150 mls/hr IV DAILY ONE Stop: 10/01/16 22:15 Sodium Chloride (Normal Saline) 1,000 mls @ 125 mls/hr IV ASDIRECTED NORTH Lorazepam (Ativan) 0 mg IM Q6H PRN; Protocol PRN Reason: Nausea/Vomiting Pantoprazole Sodium (Protonix Iv) 40 mg IVPUSH BID NORTH Sodium Chloride (Saline Flush) 10 ml FLUSH ASDIRECTED PRN PRN Reason: Keep Vein Open Last Admin: 10/01/16 13:21 Dose: 10 ml Sodium Chloride (Saline Flush) 2.5 ml FLUSH ASDIRECTED PRN PRN Reason: Keep Vein Open Last Admin: 10/01/16 13:21 Dose: 2.5 ml Temazepam (Restoril) 15 mg PO BEDTIME PRN PRN Reason: Sleep Assessment/Plan Comment:: 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
[2016-10-01] MEDS ORDERED: MVI, Adult with Vitamin K 10 ML, Thiamine 100 MG, Folic Acid 1 MG in Sodium Chloride 0.... IV ONE ×4 (16:00)
[2016-10-01] MEDS: Pantoprazole 40 MG in Sodium Chloride 0.9% 10 ML IV SCH ×2 (16:35→20:55)
[2016-10-01] MEDS: LORazepam 2 MG/ML MDV IVPUSH PRN (18:48)
[2016-10-01] MEDS: Temazepam 15 MG Cap PO PRN ×2 (20:55→23:34)
[2016-10-01] MEDS: Acetaminophen 325 MG Tab PO PRN (20:55)
[2016-10-01] MEDS: LORazepam 2 MG/ML MDV IV PRN ×2 (21:10→22:20)
[2016-10-01] MEDS: Sodium Chloride 0.9% 1,000 ML IV SCH (23:11)
[2016-10-02] MEDS: LORazepam 2 MG/ML MDV IV PRN ×6 (00:33→23:19)
[2016-10-02] MEDS: LORazepam 2 MG/ML MDV IVPUSH PRN ×2 (04:55→20:24)
[2016-10-02] MEDS: Sodium Chloride 0.9% 1,000 ML IV SCH ×3 (07:13→18:20)
[2016-10-02 07:16] LABS: CHLORIDE,CL 110 mmol/L (98-110); SODIUM,NA 138 mmol/L (136-146)
[2016-10-02] MEDS ORDERED: Calcium Carbonate 500 MG Tab.Chew PO ONE (07:41)
[2016-10-02] MEDS: Folic Acid 1 MG Tab PO SCH (08:33)
[2016-10-02] MEDS: Pantoprazole 40 MG in Sodium Chloride 0.9% 10 ML IV SCH ×2 (08:34→21:00)
[2016-10-02] MEDS ORDERED: Magnesium Sulfate/Water 4 GM in Premix Bag 1 BAG IV ONE (09:03)
--- NOTE | 2016-10-02 09:38 | PCM.PN ---
- General Info Date of Service: 10/02/16 Subjective Update: She ate breakfast. She has had intermittent tremors controlled with Ativan. She has been cooperative and pleasant. - Patient Data Vitals - most recent: Last Vital Signs Temp 97.9 F 10/02/16 05:00 Pulse 112 H 10/01/16 19:00 Resp 20 10/02/16 07:00 BP 135/75 10/02/16 07:00 Pulse Ox 100 10/02/16 07:00 Weight - most recent: 55.7 kg I&O - last 24 hours: Intake & Output 10/01/16 10/02/16 10/02/16 22:59 06:59 14:59 Intake Total 3020 2520 1000 Output Total 2050 Balance 3020 470 1000 Lab Results last 24 hrs: Laboratory Results - last 24 hr 10/02/16 10/02/16 Range/Units 06:20 06:20 WBC 4.32 (4.0-11.0) K/uL RBC 4.03 L (4.30-5.90) M/uL Hgb 11.5 L (12.0-16.0) g/dL Hct 34.4 L (36.0-46.0) % MCV 85.4 (80.0-98.0) fL MCH 28.5 (27.0-32.0) pg MCHC 33.4 (31.0-37.0) g/dL RDW Std Deviation 46.1 (28.0-62.0) fl RDW Coeff of Issa 15 (11.0-15.0) % Plt Count 230 (150-400) K/uL MPV 9.80 (7.40-12.00) fL Neut % (Auto) 45.8 L (48.0-80.0) % Lymph % (Auto) 44.9 H (16.0-40.0) % [place] % (Auto) 5.6 (0.0-15.0) % Eos % (Auto) 3.0 (0.0-7.0) % Baso % (Auto) 0.7 (0.0-1.5) % Neut # (Auto) 2.0 (1.4-5.7) K/uL Lymph # (Auto) 1.9 (0.6-2.4) K/uL [place] # (Auto) 0.2 (0.0-0.8) K/uL Eos # (Auto) 0.1 (0.0-0.7) K/uL Baso # (Auto) 0.0 (0.0-0.1) K/uL Nucleated RBC % 0.0 /100WBC Nucleated RBCs # 0 K/uL Sodium 138 (136-146) mmol/L Potassium 3.5 (3.5-5.1) mmol/L Chloride 110 (98-110) mmol/L Carbon Dioxide 19 L (21-31) mmol/L BUN 8 (6.0-23.0) mg/dL Creatinine 0.7 (0.6-1.5) mg/dL Est Cr Clr Drug Dosing 101.59 mL/min Estimated GFR (MDRD) > 60.0 ml/min Glucose 84 (60-110) mg/dL Calcium 7.5 L (8.8-10.8) mg/dL Magnesium 1.4 L (1.5-2.3) mEq/L Total Bilirubin 1.1 (0.1-1.5) mg/dL AST 25 (5-40) IU/L ALT 13 (8-54) IU/L Alkaline Phosphatase 55 (40-150) Total Protein 5.7 L (6.0-8.0) g/dL Albumin 3.1 L (3.5-5.0) g/dL Globulin 2.6 (2.0-3.5) g/dL Albumin/Globulin Ratio 1.2 L (1.3-2.8) Med Orders - Current: Current Medications Acetaminophen (Tylenol) 650 mg PO Q6H PRN PRN Reason: Headache Last Admin: 10/01/16 20:55 Dose: 650 mg Folic Acid (Folic Acid) 1 mg PO DAILY [facility] [place] [place] Last Admin: 10/02/16 08:33 Dose: 1 mg Sodium Chloride (Normal Saline) 1,000 mls @ 125 mls/hr IV ASDIRECTED [facility] Last Infusion: 10/02/16 07:16 Dose: Infused Pantoprazole Sodium 40 mg/ (Sodium Chloride) 10 mls @ 200 mls/hr IV BID [facility] Last Admin: 10/02/16 08:34 Dose: 200 mls/hr Magnesium Sulfate 4 gm/ Premix 100 mls @ 25 mls/hr IV ONETIME ONE Stop: 10/02/16 13:02 Lorazepam (Ativan) 0 mg IV Q6H PRN; Protocol PRN Reason: Nausea/Vomiting Last Admin: 10/02/16 00:33 Dose: 1 mg Lorazepam (Ativan) 1 mg IVPUSH Q2H PRN PRN Reason: Anxiety Last Admin: 10/02/16 04:55 Dose: 1 mg Sodium Chloride (Saline Flush) 10 ml FLUSH ASDIRECTED PRN PRN Reason: Keep Vein Open Last Admin: 10/01/16 13:21 Dose: 10 ml Sodium Chloride (Saline Flush) 2.5 ml FLUSH ASDIRECTED PRN PRN Reason: Keep Vein Open Last Admin: 10/01/16 13:21 Dose: 2.5 ml Temazepam (Restoril) 15 mg PO BEDTIME PRN PRN Reason: Sleep Last Admin: 10/01/16 23:34 Dose: 15 mg Thiamine HCl (Vitamin B-1) 100 mg PO BEDTIME [facility] Discontinued Medications Calcium Carbonate/Glycine (Tums) 1,000 mg PO DAILY ONE Stop: 10/02/16 07:42 Last Admin: 10/02/16 08:32 Dose: 1,000 mg Sodium Chloride (Normal Saline) 1,000 mls @ 999 mls/hr IV STAT ONE Stop: 10/01/16 14:09 Last Admin: 10/01/16 13:21 Dose: 999 mls/hr Sodium Chloride (Normal Saline) 1,000 mls @ 999 mls/hr IV STAT ONE Stop: 10/01/16 16:02 Last Admin: 10/01/16 15:15 Dose: 999 mls/hr Multivitamins/Minerals 10 ml/Thiamine HCl 100 mg/ Folic Acid 1 mg/ Sodium Chloride 1,011.2 mls @ 150 mls/hr IV DAILY ONE Stop: 10/01/16 22:44 Last Admin: 10/01/16 16:35 Dose: 150 mls/hr Lorazepam (Ativan) 1 mg IVPUSH ONETIME ONE Stop: 10/01/16 13:10 Last Admin: 10/01/16 13:20 Dose: 1 mg Lorazepam (Ativan) 0 mg IM Q6H PRN; Protocol PRN Reason: Nausea/Vomiting Ondansetron HCl (Zofran) 4 mg IVPUSH ONETIME ONE Stop: 10/01/16 13:10 Last Admin: 10/01/16 13:20 Dose: 4 mg Pantoprazole Sodium (Protonix Iv) 40 mg IVPUSH BID [facility] Last Admin: 10/01/16 16:47 Dose: Not Given - Exam General: alert, oriented Neck: supple Lungs: Clear to auscultation, Normal respiratory effort Cardiovascular: Regular Rate, Regular Rhythm Abdomen: soft, tenderness (Very mild epigastric tenderness.) - Problem List & Annotations (1) Alcohol abuse SNOMED Code(s): 54615687 Code(s): F10.10 - ALCOHOL ABUSE, UNCOMPLICATED Status: Acute Current Visit: Yes (2) Hypomagnesemia SNOMED Code(s): 630886384 Code(s): E83.42 - HYPOMAGNESEMIA Status: Acute Current Visit: Yes - Problem List Review Problem List Initiated/Reviewed/Updated: Yes - My Orders Last 24 Hours: My Active Orders 10/01/16 15:26 VTE/DVT Education [RC] PER UNIT ROUTINE Vital Signs [RC] Q1H Resuscitation Status Routine 10/01/16 15:30 Sodium Chloride 0.9% [Normal Saline] 1,000 ml IV ASDIRECTED 10/01/16 15:32 Communication Order [RC] STAT 10/01/16 16:00 Pantoprazole [Protonix IV] 40 mg Sodium Chloride 0.9% [Normal Saline] 10 ml IV BID 10/01/16 16:07 LORazepam [Ativan] See Protocol IV Q6H PRN 10/01/16 18:11 LORazepam [Ativan] 1 mg IVPUSH Q2H PRN 10/01/16 21:00 Temazepam [Restoril] 15 mg PO BEDTIME PRN 10/01/16 Dinner Regular Diet [DIET] 10/02/16 09:03 Magnesium Sulfate/Water [Magnesium Sulfate 4 GM in Water 100 ML] 4 gm Premix Bag 1 bag IV ONETIME 10/03/16 05:11 CBC W/O DIFF,HEMOGRAM [HEME] AM COMPREHENSIVE METABOLIC PN,CMP [CHEM] AM MAGNESIUM [CHEM] AM 10/04/16 05:11 CBC W/O DIFF,HEMOGRAM [HEME] AM COMPREHENSIVE METABOLIC PN,CMP [CHEM] AM MAGNESIUM [CHEM] AM 10/05/16 05:11 CBC W/O DIFF,HEMOGRAM [HEME] AM COMPREHENSIVE METABOLIC PN,CMP [CHEM] AM MAGNESIUM [CHEM] AM - Plan Plan:: 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 10/02/2016: continued monitoring in the ICU Magnesium replacement Bib Thompson MD
--- NOTE | 2016-10-02 18:43 | CT ---
EXAM DATE: 10/01/16 PATIENT'S AGE: 26 Patient: ALBERT JOHNSON Facility: [place], [place] Site . Site : 1990 Study: CT Head [id number]/26/2017 2:35:03 PM Ordering Physician: Rufina Smith Final Report: HISTORY: Recent trauma with head injury. Confusion, nausea, dizziness. Headache. TECHNIQUE: Noncontrast head CT. COMPARISON: No prior. FINDINGS: There is no acute intracranial hemorrhage. No extra-axial collection or hematoma. No mass effect or midline shift. No hydrocephalus. No acute loss of rojo-white differentiation. No acute ischemic infarct. There is no acute skull fracture. The mastoid air cells appear clear. Mild mucosal thickening involving the maxillary sinuses. No acute sinusitis. IMPRESSION: No acute intracranial injury or disease. Dictated by Valdemar Negron MD @ 10/01/2016 2:52:34 PM Dictated by: Valdemar Negron MD @ 10/01/2016 14:52:40 (Electronic Signature) Report Signed by Proxy and Original Signed Document filed in the Medical Record. [facility]
[2016-10-02] MEDS ORDERED: LORazepam 2 MG/ML MDV IV PRN (19:18)
[2016-10-02] MEDS: Thiamine 100 MG Tab PO SCH (20:24)
[2016-10-02] MEDS: Temazepam 15 MG Cap PO PRN (21:00)
[2016-10-02] MEDS: Acetaminophen 325 MG Tab PO PRN (21:06)
[2016-10-03] MEDS: Sodium Chloride 0.9% 1,000 ML IV SCH ×3 (02:19→20:19)
[2016-10-03] MEDS: Acetaminophen 325 MG Tab PO PRN (04:56)
[2016-10-03] MEDS: LORazepam 2 MG/ML MDV IV PRN ×4 (04:56→20:22)
[2016-10-03 05:45] LABS: CHLORIDE,CL 110 mmol/L (98-110); SODIUM,NA 140 mmol/L (136-146)
[2016-10-03] MEDS ORDERED: Calcium Carbonate 500 MG Tab.Chew PO ONE ×2 (07:28→09:50)
[2016-10-03] MEDS: Folic Acid 1 MG Tab PO SCH (09:46)
[2016-10-03] MEDS: Pantoprazole 40 MG in Sodium Chloride 0.9% 10 ML IV SCH ×2 (09:47→20:18)
[2016-10-03] MEDS ORDERED: Ondansetron 4 MG Tab PO PRN (10:35)
--- NOTE | 2016-10-03 10:46 | PCM.PN ---
- General Info Date of Service: 10/03/16 Admission Dx/Problem (Free Text): Admission Diagnosis/Problem Admission Diagnosis/Problem Alcohol withdrawal syndrome Subjective Update: Patient is feeling better this morning. Balance is better and she is not as fatigued. She did have some visual and auditory hallucinations last evening as per nursing. She felt very anxious last night but the ativan helped greatly. She is eating and eliminating without difficulty. She is unsure on wether she wants to go to formal rehab at this time. Functional Status: Reports: pain controlled, tolerating diet, ambulating, urinating - Review of Systems General: Reports: Weakness, Fatigue, Appetite. Denies: Fever HEENT: Denies: headaches, sinus congestion Pulmonary: Reports: cough. Denies: shortness of breath, pleuritic chest pain, wheezing Cardiovascular: Denies: Chest Pain, Palpitations, Edema Gastrointestinal: Reports: Nausea. Denies: Abdominal pain, Vomiting Genitourinary: Denies: dysuria, hematuria Musculoskeletal: Reports: leg pain (cramping occasionally). Denies: neck pain Skin: Denies: cyanosis Neurological: Denies: Confusion, Dizziness, Headache Psychiatric: Denies: confusion - Patient Data Vitals - most recent: Last Vital Signs Temp 36.6 C 10/03/16 08:00 Pulse 112 H 10/01/16 19:00 Resp 20 10/03/16 09:00 BP 120/85 10/03/16 09:00 Pulse Ox 100 10/03/16 09:00 Weight - most recent: 55.7 kg I&O - last 24 hours: Intake & Output 10/02/16 10/03/16 10/03/16 22:59 06:59 14:59 Intake Total 2800 2290 Output Total 3500 2350 Balance -700 -60 Lab Results last 24 hrs: Laboratory Results - last 24 hr 10/03/16 10/03/16 Range/Units 04:50 04:50 WBC 4.52 (4.0-11.0) K/uL RBC 4.14 L (4.30-5.90) M/uL Hgb 11.9 L (12.0-16.0) g/dL Hct 35.7 L (36.0-46.0) % MCV 86.2 (80.0-98.0) fL MCH 28.7 (27.0-32.0) pg MCHC 33.3 (31.0-37.0) g/dL RDW Std Deviation 46.6 (28.0-62.0) fl RDW Coeff of Issa 15 (11.0-15.0) % Plt Count 213 (150-400) K/uL MPV 10.20 (7.40-12.00) fL Nucleated RBC % 0.0 /100WBC Nucleated RBCs # 0 K/uL Sodium 140 (136-146) mmol/L Potassium 3.7 (3.5-5.1) mmol/L Chloride 110 (98-110) mmol/L Carbon Dioxide 21 (21-31) mmol/L BUN 5 L (6.0-23.0) mg/dL Creatinine 0.7 (0.6-1.5) mg/dL Est Cr Clr Drug Dosing 101.59 mL/min Estimated GFR (MDRD) > 60.0 ml/min Glucose 107 (60-110) mg/dL Calcium 7.8 L (8.8-10.8) mg/dL Magnesium 1.8 (1.5-2.3) mEq/L Total Bilirubin 0.4 (0.1-1.5) mg/dL AST 21 (5-40) IU/L ALT 10 (8-54) IU/L Alkaline Phosphatase 54 (40-150) Total Protein 5.9 L (6.0-8.0) g/dL Albumin 3.3 L (3.5-5.0) g/dL Globulin 2.6 (2.0-3.5) g/dL Albumin/Globulin Ratio 1.3 (1.3-2.8) Med Orders - Current: Current Medications Acetaminophen (Tylenol) 650 mg PO Q6H PRN PRN Reason: Headache Last Admin: 10/03/16 04:56 Dose: 650 mg Folic Acid (Folic Acid) 1 mg PO DAILY [facility] Last Admin: 10/03/16 09:46 Dose: 1 mg Sodium Chloride (Normal Saline) 1,000 mls @ 125 mls/hr IV ASDIRECTED [facility] Last Admin: 10/03/16 02:19 Dose: 125 mls/hr Pantoprazole Sodium 40 mg/ (Sodium Chloride) 10 mls @ 200 mls/hr IV BID [facility] Last Admin: 10/03/16 09:47 Dose: 200 mls/hr Lorazepam (Ativan) 0 mg IV Q4H PRN; Protocol PRN Reason: Agitation Last Admin: 10/03/16 09:47 Dose: 1 mg Ondansetron HCl (Zofran) 4 mg PO Q4H PRN PRN Reason: Nausea/Vomiting Sodium Chloride (Saline Flush) 10 ml FLUSH ASDIRECTED PRN PRN Reason: Keep Vein Open Last Admin: 10/01/16 13:21 Dose: 10 ml Sodium Chloride (Saline Flush) 2.5 ml FLUSH ASDIRECTED PRN PRN Reason: Keep Vein Open Last Admin: 10/01/16 13:21 Dose: 2.5 ml Temazepam (Restoril) 15 mg PO BEDTIME PRN PRN Reason: Sleep Last Admin: 10/02/16 21:00 Dose: 15 mg Thiamine HCl (Vitamin B-1) 100 mg PO BEDTIME [facility] Last Admin: 10/02/16 20:24 Dose: 100 mg Discontinued Medications Calcium Carbonate/Glycine (Tums) 1,000 mg PO DAILY ONE Stop: 10/02/16 07:42 Last Admin: 10/02/16 08:32 Dose: 1,000 mg Calcium Carbonate/Glycine (Tums) 1,000 mg PO ONETIME ONE Stop: 10/03/16 07:29 Last Admin: 10/03/16 09:50 Dose: Not Given Calcium Carbonate/Glycine (Tums) 1,000 mg PO ONETIME ONE Stop: 10/03/16 09:51 Last Admin: 10/03/16 09:54 Dose: 1,000 mg Sodium Chloride (Normal Saline) 1,000 mls @ 999 mls/hr IV STAT ONE Stop: 10/01/16 14:09 Last Admin: 10/01/16 13:21 Dose: 999 mls/hr Sodium Chloride (Normal Saline) 1,000 mls @ 999 mls/hr IV STAT ONE Stop: 10/01/16 16:02 Last Admin: 10/01/16 15:15 Dose: 999 mls/hr Multivitamins/Minerals 10 ml/Thiamine HCl 100 mg/ Folic Acid 1 mg/ Sodium Chloride 1,011.2 mls @ 150 mls/hr IV DAILY ONE Stop: 10/01/16 22:44 Last Admin: 10/01/16 16:35 Dose: 150 mls/hr Magnesium Sulfate 4 gm/ Premix 100 mls @ 25 mls/hr IV ONETIME ONE Stop: 10/02/16 13:02 Last Admin: 10/02/16 10:10 Dose: 25 mls/hr Lorazepam (Ativan) 1 mg IVPUSH ONETIME ONE Stop: 10/01/16 13:10 Last Admin: 10/01/16 13:20 Dose: 1 mg Lorazepam (Ativan) 0 mg IM Q6H PRN; Protocol PRN Reason: Nausea/Vomiting Lorazepam (Ativan) 0 mg IV Q6H PRN; Protocol PRN Reason: Nausea/Vomiting Last Admin: 10/02/16 18:15 Dose: 1 mg Lorazepam (Ativan) 1 mg IVPUSH Q2H PRN PRN Reason: Anxiety Last Admin: 10/02/16 20:24 Dose: 1 mg Lorazepam (Ativan) 0 mg IV ASDIRECTED PRN; Protocol PRN Reason: Agitation Ondansetron HCl (Zofran) 4 mg IVPUSH ONETIME ONE Stop: 10/01/16 13:10 Last Admin: 10/01/16 13:20 Dose: 4 mg Pantoprazole Sodium (Protonix Iv) 40 mg IVPUSH BID [facility] Last Admin: 10/01/16 16:47 Dose: Not Given - Exam Quality Assessment: DVT prophylaxis General: alert, oriented, cooperative, no acute distress HEENT: Pupils equal, Pupils reactive, EOMI, Mucous membr. moist/pink Neck: supple, trachea midline Lungs: Clear to auscultation, Normal respiratory effort Cardiovascular: Regular Rate, Regular Rhythm, No Murmurs Abdomen: bowel sounds present, soft, no tenderness, no distension Back Exam: normal inspection Extremities: no edema, normal pulses, no tenderness/swelling, no calf tenderness Peripheral Pulses: 2+: radial (L), radial (R), posterior tibial (L), posterior tibial (R), dorsalis pedis (L), dorsalis pedis (R) Skin: warm, intact, moist Neurological: no new focal deficit Psy/Mental Status: alert, normal affect, normal mood - Problem List & Annotations (1) Alcohol abuse SNOMED Code(s): 63671122 Code(s): F10.10 - ALCOHOL ABUSE, UNCOMPLICATED Status: Chronic Priority: Medium Current Visit: Yes (2) Alcohol withdrawal syndrome SNOMED Code(s): 443339949 Code(s): F10.239 - ALCOHOL DEPENDENCE WITH WITHDRAWAL, UNSPECIFIED Status: Acute Priority: High Current Visit: Yes Qualifiers: Complication of substance-induced condition: uncomplicated Qualified Code(s ): F10.230 - Alcohol dependence with withdrawal, uncomplicated - Problem List Review Problem List Initiated/Reviewed/Updated: Yes - My Orders Last 24 Hours: My Active Orders 10/02/16 21:00 Thiamine [Vitamin B-1] 100 mg PO BEDTIME 10/03/16 10:35 Ondansetron [Zofran] 4 mg PO Q4H PRN - Plan Plan:: 26 yo female admitted 10/01/16 for acute alcohol withdrawl with history of alcohol abuse and drug abuse. Alcohol withdrawl: CIWA score 9-14. She recieved 4 mg Ativan yesterday for anxiety and agitation. 2 mg Ativan today. Had some auditory and visual hallucination overnight. Still in withdrawl. Will continue ICU status with CIWA protocol today and consider stepping down tomorrow pending how well she does today. Thiamine and Folate replacement continued. Patient is still unsure of formal rehab and I suspect she will decline. Will need to have her follow-up with a PCP on discharge as well as possible human services. On protonix for heartburn VTE: SCD and amubulating at this time. High risk of bleed secondary to alcohol abuse.
[2016-10-03] MEDS: Thiamine 100 MG Tab PO SCH (20:19)
[2016-10-03] MEDS: Temazepam 15 MG Cap PO PRN (20:19)
[2016-10-04] MEDS: LORazepam 2 MG/ML MDV IV PRN ×2 (00:21→04:46)
[2016-10-04] MEDS: Sodium Chloride 0.9% 1,000 ML IV SCH (04:50)
[2016-10-04 05:38] LABS: CHLORIDE,CL 109 mmol/L (98-110); SODIUM,NA 140 mmol/L (136-146)
[2016-10-04] MEDS: Folic Acid 1 MG Tab PO SCH (08:40)
[2016-10-04] MEDS: Pantoprazole 40 MG in Sodium Chloride 0.9% 10 ML IV SCH (08:40)
[2016-10-04 11:02] VITALS: BP 94/63
--- NOTE | 2016-10-04 11:45 | PCM.DCSUM1 ---
Discharge Summary - Hospital Course Brief History: She was admitted through the emergency department for alcohol intoxication and for inpatient treatment of detoxification. - Discharge Data Discharge Date: 10/04/16 Discharge Disposition: Home, Self-Care 01 Condition: Stable - Discharge Diagnosis/Problem(s) (1) Alcohol abuse SNOMED Code(s): 97392291 ICD Code: F10.10 - ALCOHOL ABUSE, UNCOMPLICATED Status: Chronic Priority : Medium Current Visit: Yes (2) Hypomagnesemia SNOMED Code(s): 176181842 ICD Code: E83.42 - HYPOMAGNESEMIA Status: Acute Current Visit: Yes - Patient Summary/Data Hospital Course: She was observed in the intensive care unit. She was given Ativan according to protocol for alcohol withdrawal. At the time of discharge she is ambulatory independently. She feels ready to go home. On admission she had had some epigastric discomfort. This was treated with Protonix. She felt improved in this regard at discharge. She has taken protonic spent home in the past. She will be discharged on Protonix. She was asked about further outpatient followup for addiction. She plans to followup with alcoholic[facility] anonymous. He states she knows how to arrange this and does not need any of our help in this regard Disposition: diagnosis: alcoholism discharge home ativan 1 mg po qid prn tremors or alcohol withdrawl #30 protonix: 40 mg daily x two weeks then one daily prn follow up with Dr Ron Godoy I have discussed with her the potential side effects and hazards with the use of Ativan including sedation and and habituation. She verbalizes understanding. - Discharge Plan Home Medications: Home Meds Ibuprofen 600 mg PO ASDIRECTED PRN 09/15/16 [History] Meloxicam [Mobic] 0 mg PO ASDIRECTED 09/15/16 [History] Patient Handouts: Alcohol Use Disorder, Alcohol Abuse and Nutrition, Pantoprazole tablets, Lorazepam tablets, Alcohol Withdrawal, [id number] Referrals: Ron Godoy MD [Physician] - 10/10/16 12:00 pm - Patient Data Vitals - Most Recent: Last Vital Signs Temp 97.5 F 10/04/16 08:00 Pulse 95 10/03/16 14:00 Resp 20 10/04/16 11:00 BP 94/63 10/04/16 11:00 Pulse Ox 98 10/04/16 11:00 Weight - Most Recent: 55.5 kg I&O - Last 24 hours: Intake & Output 10/03/16 10/04/16 10/04/16 22:59 06:59 14:59 Intake Total 2510 2600 Output Total 2600 4100 800 Balance -90 -1500 -800 Lab Results - Last 24 hrs: Laboratory Results - last 24 hr 10/04/16 10/04/16 Range/Units 04:27 04:27 WBC 4.57 (4.0-11.0) K/uL RBC 4.12 L (4.30-5.90) M/uL Hgb 11.8 L (12.0-16.0) g/dL Hct 35.6 L (36.0-46.0) % MCV 86.4 (80.0-98.0) fL MCH 28.6 (27.0-32.0) pg MCHC 33.1 (31.0-37.0) g/dL RDW Std Deviation 46.4 (28.0-62.0) fl RDW Coeff of Issa 15 (11.0-15.0) % Plt Count 197 (150-400) K/uL MPV 10.40 (7.40-12.00) fL Nucleated RBC % 0.0 /100WBC Nucleated RBCs # 0 K/uL Sodium 140 (136-146) mmol/L Potassium 3.7 (3.5-5.1) mmol/L Chloride 109 (98-110) mmol/L Carbon Dioxide 21 (21-31) mmol/L BUN 4 L (6.0-23.0) mg/dL Creatinine 0.7 (0.6-1.5) mg/dL Est Cr Clr Drug Dosing 101.59 mL/min Estimated GFR (MDRD) > 60.0 ml/min Glucose 90 (60-110) mg/dL Calcium 8.3 L (8.8-10.8) mg/dL Magnesium 1.6 (1.5-2.3) mEq/L Total Bilirubin 0.3 (0.1-1.5) mg/dL AST 21 (5-40) IU/L ALT 10 (8-54) IU/L Alkaline Phosphatase 52 (40-150) Total Protein 6.3 (6.0-8.0) g/dL Albumin 3.6 (3.5-5.0) g/dL Globulin 2.7 (2.0-3.5) g/dL Albumin/Globulin Ratio 1.3 (1.3-2.8) Med Orders - Current: Current Medications Acetaminophen (Tylenol) 650 mg PO Q6H PRN PRN Reason: Headache Last Admin: 10/03/16 04:56 Dose: 650 mg Folic Acid (Folic Acid) 1 mg PO DAILY [facility] Last Admin: 10/04/16 08:40 Dose: 1 mg Sodium Chloride (Normal Saline) 1,000 mls @ 125 mls/hr IV ASDIRECTED [facility] Last Admin: 10/04/16 04:50 Dose: 125 mls/hr Pantoprazole Sodium 40 mg/ (Sodium Chloride) 10 mls @ 200 mls/hr IV BID [facility] Last Admin: 10/04/16 08:40 Dose: 200 mls/hr Lorazepam (Ativan) 0 mg IV Q4H PRN; Protocol PRN Reason: Agitation Last Admin: 10/04/16 04:46 Dose: 1 mg Ondansetron HCl (Zofran) 4 mg PO Q4H PRN PRN Reason: Nausea/Vomiting Last Admin: 10/03/16 12:42 Dose: 4 mg Sodium Chloride (Saline Flush) 10 ml FLUSH ASDIRECTED PRN PRN Reason: Keep Vein Open Last Admin: 10/01/16 13:21 Dose: 10 ml Sodium Chloride (Saline Flush) 2.5 ml FLUSH ASDIRECTED PRN PRN Reason: Keep Vein Open Last Admin: 10/01/16 13:21 Dose: 2.5 ml Temazepam (Restoril) 15 mg PO BEDTIME PRN PRN Reason: Sleep Last Admin: 10/03/16 20:19 Dose: 15 mg Thiamine HCl (Vitamin B-1) 100 mg PO BEDTIME [facility] Last Admin: 10/03/16 20:19 Dose: 100 mg Discontinued Medications Calcium Carbonate/Glycine (Tums) 1,000 mg PO DAILY ONE Stop: 10/02/16 07:42 Last Admin: 10/02/16 08:32 Dose: 1,000 mg Calcium Carbonate/Glycine (Tums) 1,000 mg PO ONETIME ONE Stop: 10/03/16 07:29 Last Admin: 10/03/16 09:50 Dose: Not Given Calcium Carbonate/Glycine (Tums) 1,000 mg PO ONETIME ONE Stop: 10/03/16 09:51 Last Admin: 10/03/16 09:54 Dose: 1,000 mg Sodium Chloride (Normal Saline) 1,000 mls @ 999 mls/hr IV STAT ONE Stop: 10/01/16 14:09 Last Admin: 10/01/16 13:21 Dose: 999 mls/hr Sodium Chloride (Normal Saline) 1,000 mls @ 999 mls/hr IV STAT ONE Stop: 10/01/16 16:02 Last Admin: 10/01/16 15:15 Dose: 999 mls/hr Multivitamins/Minerals 10 ml/Thiamine HCl 100 mg/ Folic Acid 1 mg/ Sodium Chloride 1,011.2 mls @ 150 mls/hr IV DAILY ONE Stop: 10/01/16 22:44 Last Admin: 10/01/16 16:35 Dose: 150 mls/hr Magnesium Sulfate 4 gm/ Premix 100 mls @ 25 mls/hr IV ONETIME ONE Stop: 10/02/16 13:02 Last Admin: 10/02/16 10:10 Dose: 25 mls/hr Lorazepam (Ativan) 1 mg IVPUSH ONETIME ONE Stop: 10/01/16 13:10 Last Admin: 10/01/16 13:20 Dose: 1 mg Lorazepam (Ativan) 0 mg IM Q6H PRN; Protocol PRN Reason: Nausea/Vomiting Lorazepam (Ativan) 0 mg IV Q6H PRN; Protocol PRN Reason: Nausea/Vomiting Last Admin: 10/02/16 18:15 Dose: 1 mg Lorazepam (Ativan) 1 mg IVPUSH Q2H PRN PRN Reason: Anxiety Last Admin: 10/02/16 20:24 Dose: 1 mg Lorazepam (Ativan) 0 mg IV ASDIRECTED PRN; Protocol PRN Reason: Agitation Ondansetron HCl (Zofran) 4 mg IVPUSH ONETIME ONE Stop: 10/01/16 13:10 Last Admin: 10/01/16 13:20 Dose: 4 mg Pantoprazole Sodium (Protonix Iv) 40 mg IVPUSH BID [facility] Last Admin: 10/01/16 16:47 Dose: Not Given *Q Meaningful Use (DIS) - VTE *Q VTE Criteria *Q: - Stroke *Q Stroke Criteria *Q: - AMI *Q AMI Criteria *Q:
== END 2016-10-04 12:10 | disposition home or self-care (01) | DRG 775 ==
LOC: MW.ED 12:26 → MW.ICU 15:22
PROVIDERS: ADMIT Family Medicine; ATTEND Family Medicine
PROC: HZ2ZZZZ Detoxification Services for Substance Abuse Treatment (ICD-10-PCS; principal; 2016-10-01)
DX: F10.239 Alcohol dependence with withdrawal, unspecified (principal); F10.229 Alcohol dependence with intoxication, unspecified; Z87.898 Personal history of other specified conditions; Y90.7 Blood alcohol level of 200-239 mg/100 ml; E83.42 Hypomagnesemia; R51 Headache
CPT/HCPCS: 36415; 70450; 70450-26; 80053; 80305; 81001; 81025; 82150; 83690; 83735; 84484; 85025; 85027; 93005; 96361; 96374; 96375; 99285; 99285-25; A9270-GY; C9113; G0480; J2060; J2405; J3411; J3475; J7040

== ENCOUNTER → 2016-11-28 | Outpatient (CLI) | payer BC ==
[2016-11-28 12:02] LABS: CHLORIDE,CL 106 mmol/L (98-110); SODIUM,NA 141 mmol/L (136-146)
== END ==
LOC: MW.CHFP 11:07
PROVIDERS: ATTEND Nurse Practitioner Family
DX: R19.7 Diarrhea, unspecified (principal)
CPT/HCPCS: 36415; 80053; 85025; G0480

== ENCOUNTER 2017-09-29 07:30 | Inpatient (IN) | payer MEDICAID ==
[2017-09-29] MEDS ORDERED: Water For Irrigation,Sterile 1,000 ML Container IRR PRN (07:54)
[2017-09-29] MEDS ORDERED: Carboprost Tromethamine 250 MCG/1 ML Amp IM PRN (07:54)
[2017-09-29] MEDS ORDERED: Misoprostol 200 MCG Tab PO PRN (07:54)
[2017-09-29] MEDS ORDERED: Butorphanol 1 MG/ML SDV IVPUSH PRN (07:54)
[2017-09-29] MEDS ORDERED: Sodium Chloride 0.9% 2.5 ML Syringe FLUSH PRN (07:54)
[2017-09-29] MEDS ORDERED: Sodium Chloride 0.9% 10 ML Syringe FLUSH PRN (07:54)
[2017-09-29] MEDS ORDERED: Lidocaine 1% 50 ML MDV INJECT PRN (07:54)
[2017-09-29] MEDS ORDERED: Tranexamic Acid 1,000 MG in Sodium Chloride 0.9% 100 ML IV PRN (07:54)
[2017-09-29] MEDS ORDERED: Methylergonovine 0.2 MG/1 ML Amp IM PRN ×2 (07:54→09:31)
[2017-09-29] MEDS ORDERED: Nalbuphine 10 MG/1 ML Vial IVPUSH PRN (07:54)
[2017-09-29] MEDS ORDERED: Oxytocin/0.9 % Sodium Chloride 30 UNIT/500 ML BAG IV SCH (08:00)
[2017-09-29] MEDS ORDERED: Lactated Ringers 1,000 ML IV SCH (08:00)
[2017-09-29] MEDS ORDERED: Oxytocin/0.9 % Sodium Chloride 30 UNIT/500 ML BAG ONE (08:12)
[2017-09-29] MEDS ORDERED: Ibuprofen 400 MG Tab PO PRN (09:31)
[2017-09-29] MEDS ORDERED: Docusate Sodium 100 MG Cap PO PRN (09:31)
[2017-09-29] MEDS ORDERED: Witch Hazel Medicated Pads 40/Jar TOP PRN (09:31)
[2017-09-29] MEDS ORDERED: Lanolin 100% Cream 7 GM Tube TOP PRN (09:31)
[2017-09-29] MEDS ORDERED: Acetaminophen 500 MG Tab PO PRN ×2 (09:31)
[2017-09-29] MEDS ORDERED: Benzocaine/Menthol 20%-0.5% Spray 78 GM Cannister TOP PRN (09:31)
[2017-09-29] MEDS ORDERED: Bisacodyl 10 MG Supp RECTAL PRN (09:31)
--- NOTE | 2017-09-29 09:37 | PCM.DEL ---
L & D Note - General Info Date of Service: 09/29/17 Mother's Due Date: 10/17/17 - Delivery Note Labor: Spontaneous Delivery Outcome: Livebirth Infant Delivery Method: Spontaneous Vaginal Delivery-Single (prior ) Presentation: Right Occiput Anterior (RODRIGO) Nuchal Cord: None Prep: Other Anesthesia Type: Local Anesthetic: Lidocaine (Xylocaine) 1% Plain Local Anesthetic Volume: 5cc Amniotic Fluid Description: Clear Episiotomy Type: Right Mediolateral Laceration: None Suture type: Vicryl Placenta: Intact Cord: 3 Vessels Resuscitation Needed: No Score 1 min: 8 Score 5 min: 9 - Patient Data Lab Results Last 24 Hours: Laboratory Results - last 24 hr 09/29/17 09/29/17 Range/Units 08:00 08:09 WBC 16.63 H (4.0-11.0) K/uL RBC 3.99 L (4.30-5.90) M/uL Hgb 10.1 L (12.0-16.0) g/dL Hct 32.0 L (36.0-46.0) % MCV 80.2 (80.0-98.0) fL MCH 25.3 L (27.0-32.0) pg MCHC 31.6 (31.0-37.0) g/dL RDW Std Deviation 47.5 (28.0-62.0) fl RDW Coeff of Issa 16 H (11.0-15.0) % Plt Count 280 (150-400) K/uL MPV 10.20 (7.40-12.00) fL Nucleated RBC % 0.0 /100WBC Nucleated RBCs # 0 K/uL Blood Type O POSITIVE Antibody Screen NEGATIVE Med Orders - Current: Current Medications Acetaminophen (Tylenol Extra Strength) 500 mg PO Q4H PRN PRN Reason: Pain Acetaminophen (Tylenol Extra Strength) 1,000 mg PO Q4H PRN PRN Reason: Pain Benzocaine/Menthol (Dermoplast Pain Relief 20%-0.5% [place]) 78 gm TOP ASDIRECTED PRN PRN Reason: Perineal Comfort Measure Bisacodyl (Dulcolax) 10 mg RECTAL .ONCE PRN PRN Reason: Constipation Docusate Sodium (Colace) 100 mg PO BID PRN PRN Reason: Constipation Emollient Ointment (Lansinoh Hpa) 0 gm TOP ASDIRECTED PRN PRN Reason: Sore Nipples Ibuprofen (Motrin) 400 mg PO Q4H PRN PRN Reason: Pain Ibuprofen (Motrin) 800 mg PO Q6H PRN PRN Reason: Pain Methylergonovine Maleate (Methergine) 0.2 mg IM .ONCE PRN PRN Reason: Excessive Vaginal Bleeding Witch Sylvie (Tucks) 1 pad TOP ASDIRECTED PRN PRN Reason: comfort care Discontinued Medications Butorphanol Tartrate (Stadol) 1 mg IVPUSH Q1H PRN PRN Reason: Pain Carboprost Tromethamine (Hemabate Ds) 250 mcg IM ASDIRECTED PRN PRN Reason: Post Hemorrhage Lactated Ringer's (Ringers, Lactated) 1,000 mls @ 150 mls/hr IV ASDIRECTED NORTH Oxytocin/Sodium Chloride (Oxytocin 30 Unit/500 Ml-Ns) 30 unit in 500 mls @ 999 mls/hr IV TITRATE NORTH Tranexamic Acid 1,000 mg/ (Sodium Chloride) 110 mls @ 660 mls/hr IV ONETIME PRN PRN Reason: Bleeding Oxytocin/Sodium Chloride (Oxytocin 30 Unit/500 Ml-Ns) Confirm Administered Dose 30 unit in 500 mls @ as directed .ROUTE .[facility] ONE Stop: 09/29/17 08:13 Lidocaine HCl (Xylocaine 1%) 50 ml INJECT .ONCE PRN PRN Reason: Laceration repair Methylergonovine Maleate (Methergine) 0.2 mg IM ASDIRECTED PRN PRN Reason: Post Hemorrhage Misoprostol (Cytotec) 200 mcg PO .ONCE PRN PRN Reason: Post Hemorrhage Nalbuphine HCl (Nubain) 10 mg IVPUSH Q1H PRN PRN Reason: Pain (severe 7-10) Sodium Chloride (Saline Flush) 10 ml FLUSH ASDIRECTED PRN PRN Reason: Keep Vein Open Sodium Chloride (Saline Flush) 2.5 ml FLUSH ASDIRECTED PRN PRN Reason: Keep Vein Open Sterile Water (Sterile Water For Irrigation) 1,000 ml IRR ASDIRECTED PRN PRN Reason: delivery - Problem List & Annotations (1) Vaginal delivery following previous section, delivered SNOMED Code(s): 758856758 Code(s): O34.219 - MATERNAL CARE FOR UNSP TYPE SCAR FROM PREVIOUS DEL Status: Acute Current Visit: Yes - Problem List Review Problem List Initiated/Reviewed/Updated: Yes - My Orders Last 24 Hours: My Active Orders 09/29/17 07:54 May Shower [RC] ASDIRECTED Notify Provider [RC] PRN Up ad Caitlyn [RC] ASDIRECTED Vital Signs [RC] PER UNIT ROUTINE 09/29/17 09:31 Patient Status [ADT] Routine May Shower [RC] ASDIRECTED Up ad Caitlyn [RC] ASDIRECTED Vital Signs [RC] PER UNIT ROUTINE Acetaminophen [Tylenol Extra Strength] 1,000 mg PO Q4H PRN Acetaminophen [Tylenol Extra Strength] 500 mg PO Q4H PRN Benzocaine/Menthol [Dermoplast Pain Relief 20%-0.5% [place]] 78 gm TOP ASDIRECTED PRN Bisacodyl [Dulcolax] 10 mg RECTAL .ONCE PRN Docusate Sodium [Colace] 100 mg PO BID PRN Ibuprofen [Motrin] 400 mg PO Q4H PRN Ibuprofen [Motrin] 800 mg PO Q6H PRN Lanolin [Lansinoh HPA] See Dose Instructions TOP ASDIRECTED PRN Methylergonovine [Methergine] 0.2 mg IM .ONCE PRN Witch Sylvie [Tucks] 1 pad TOP ASDIRECTED PRN Assess Lochia [WOMSER] Per Unit Routine Assess Uterine Involution [WOMSER] Per Unit Routine Peripheral IV Discontinue [OM.PC] Routine Resuscitation Status Routine 09/29/17 09:32 Perineal Care [OM.PC] Per Unit Routine 09/29/17 Lunch Regular Diet [DIET] 09/30/17 05:11 HEMOGLOBIN/HEMATOCRIT,HH [HEME] Timed
--- NOTE | 2017-09-29 10:09 | PCM.SN ---
- Free Text/Narrative Note: Notified of in progress. Presented to pt room to assess urgency. Nursing staff having difficulty establishing IV, pt fully dilated and feeling urge to push. 20 g IV placed to right forearm on first attempt. Threads easily and blood return observed.
--- NOTE | 2017-09-29 12:30 | HP ---
DATE OF : 1990 PRIMARY CARE PHYSICIAN: None PCP CHIEF COMPLAINT: Contractions. HISTORY OF PRESENT ILLNESS: This is a 27-year-old female. She is G3, P2-0-0-2. She is at 38 and 3/7th weeks' gestation. She has had one prior primary followed by a vaginal after . She has requested a vaginal trial of labor. Her care with this has been primarily in [place], [place]. I do have those records. I do not have any records from [facility] in [place]. She was seen by Wendy Mejia, for whom I am covering at this point. Her care has been uncomplicated. During her prior , she did use amphetamines. She does not currently use any alcohol or street drugs. She has had immunization to varicella. Her last visit that I have documented from her [place] chart was August 23, 2017. She is blood type O positive, rubella immune, and group B strep negative. During the , she was noted to have a low-lying placenta at 20 weeks. This was an anterior low-lying placenta. However, a repeat ultrasound at 28 weeks showed resolution of the low- lying placenta with no evidence of morbid implantation. PAST MEDICAL HISTORY: Significant for mitral valve prolapse, anemia during the , history of ovarian cysts, and history of drug abuse. PAST SURGICAL HISTORY: delivery in 2012. ALLERGIES: To codeine, which causes itching. MEDICATIONS: vitamins. SOCIAL HISTORY: She denies use of tobacco, alcohol, or street drugs. FAMILY HISTORY: Significant for hypertension, diabetes, and thyroid problems. REVIEW OF SYSTEMS: Limited due to pain; however, she denies any current GI symptoms. No dermatologic symptoms or rash. No cardiovascular symptoms. No pulmonary symptoms. No vaginal discharge or bleeding. PHYSICAL EXAMINATION: VITAL SIGNS: Temperature is 96.4, blood pressure 133/75, and heart rate of 100. heart tones were 120s with moderate variability, decelerations with contractions that recovered nicely with the appearance of early decelerations. GENERAL: She is alert and oriented, in no acute distress. She is in labor and uncomfortable. NECK: Supple without lymphadenopathy or thyromegaly. LUNGS: Clear bilaterally. CV: Regular rate without murmur. ABDOMEN: Soft, gravid, and nontender. Estimated weight of 3000 grams. EXTREMITIES: Trace edema. VAGINAL EXAM: Complete, +1 station. ASSESSMENT AND PLAN: A 27-year-old female who presents at 38 and 3/7th weeks' gestation in active spontaneous labor, prior delivery, and desires trial of labor. She is admitted for labor management. RENAN OTERO /[id number]
--- NOTE | 2017-09-29 13:13 | OR ---
SURGEON: Gardenia Jensen M.D. DATE OF PROCEDURE: 09/29/2017 PREOPERATIVE DIAGNOSES: 1. A 38-3/7-week intrauterine . 2. Prior delivery. 3. Desires trial of labor. 4. Active spontaneous labor. POSTOPERATIVE DIAGNOSES: 1. A 38-3/7-week intrauterine . 2. Prior delivery. 3. Desires trial of labor. 4. Active spontaneous labor. PROCEDURE: Term spontaneous vaginal delivery (vaginal after ) with small right mediolateral episiotomy. ANESTHESIA: Local. ESTIMATED BLOOD LOSS: Less than 300 mL. FINDINGS: Liveborn female. scores 8 and 9. Weight is pending at the time of dictation. There was a very small right mediolateral episiotomy that was repaired. Placenta was spontaneous. Schultze intact with 3 vessels. COMPLICATIONS: None known. DISPOSITION: Mother and baby in LDRP in good condition. BRIEF HISTORY: This is a 27-year-old female. She is G3, P2-0-0-2. First delivery was primary for abnormal heart tones, followed by a vaginal after C- section in 2014, and she has had most of her care in [place], [place]. She has had uncomplicated care. Her 20-week ultrasound showed an anterior low-lying placenta, but a 28-week ultrasound did show resolution of the low-lying placenta. She is blood type O positive, rubella immune, group B strep negative. She transferred care late in the . I do not have any records from her care in [place]. She was seen by Wendy Mejia at the [facility]; however, I am covering for Dr. Aguirre and Wendy at this time as locum coverage. DESCRIPTION OF PROCEDURE: The patient presented to Labor and Delivery complete. We were able to obtain an IV and laboratory studies. Once this was performed, the patient was allowed to push. She pushed over a 10-minute time period to a 5+ station. As the head was , it was apparent that the perineum was not stretching, and to avoid an upward laceration of the urethra, I did perform a very small episiotomy in the right mediolateral position, pretty much just incising the skin after 4 mL of 1% lidocaine was injected. With this, I was able to assist with delivery of the head over the perineum with support with subsequent delivery of the infant's shoulders and body without any difficulty. The was bulb suctioned by nose and mouth, and after the cord had ceased to pulsate, it was doubly clamped and cut. The was handed to the mother in the presence of the nurse attending delivery. The was a liveborn female, scores 8 and 9. Pitocin was initiated after delivery of the to assist with delivery of the placenta. After the cord had been clamped and cut, cord blood was collected for cord ABGs as well as routine cord blood sampling. The placenta was delivered spontaneously. Schultze intact with 3 vessels. Upon inspection of the pelvis and perineum, there were no periurethral, vaginal sidewall, cervical, or rectal lacerations. There was a right mediolateral episiotomy that did not really extend into the perineum. The skin was reapproximated with a running subcuticular suture of 3-0 Vicryl. Final sponge, needle, and instrument counts were reported as correct. There were no known complications. Mother and baby are in LDRP in good condition. RENAN / SHANNA /[id number]
[2017-09-29] MEDS: Ibuprofen 800 MG Tab PO PRN (17:33)
[2017-09-30] MEDS: Ibuprofen 800 MG Tab PO PRN (02:37)
--- NOTE | 2017-09-30 09:00 | PCM.DCSUM1 ---
Discharge Summary - Hospital Course Free Text/Narrative:: 27 year old at 38 3/7 weeks, present in active spontaneous labor prior , desires trial of labor, category I FHT, imminent delivery at time of admission. care transferred from [facility] and uncomplicated, remote history of substance abuse. - Discharge Data Discharge Date: 09/30/17 Discharge Disposition: Home, Self-Care 01 Condition: Good - Discharge Diagnosis/Problem(s) (1) Vaginal delivery following previous section, delivered SNOMED Code(s): 783541669 ICD Code: O34.219 - MATERNAL CARE FOR UNSP TYPE SCAR FROM PREVIOUS DEL Status: Acute Current Visit: Yes - Patient Summary/Data Operative Procedure(s) Performed: vaginal after Complications: None [place] Recommended Follow-up Testing/Procedures: 6 weeks with primary ob provider. Hospital Course: She was admitted and was complete at the time of admission, had successful , uncomplicated course. Anemic at time of admission 10.1 hgb, 9.1 at discharge. Normal blood loss normal lochia. - Patient Instructions Diet: Regular Diet as Tolerated Activity: No Strenuous Activities, Rest and Relax Today Driving: May Drive Today Showering/Bathing: May Shower Notify Provider of: Fever, Increased Pain, Nausea and/or Vomiting Other/Special Instructions: nothing per vagina for 6 weeks, call if fever, uncontrolled pain or bleeding more than a pad per hour for 2 hours. Continue iron for one month and vitamins while . May use over the counter Tylenol or ibuprofen for pain. - Discharge Plan Home Medications: Home Meds PNV95/Ferrous Fumarate/FA [ Tablet] 1 tab PO DAILY 09/13/17 [History] Patient Handouts: Vaginal Delivery Referrals: Noah Aguirre MD [Physician] - (6 weeks) - Discharge Summary/Plan Comment DC Time >30 min.: No Discharge Summary/Plan Comment: Discharge instructions reviewed, continue iron and vitamins, precautions regarding bleeding, infection and mood. Vaginal restrictions reviewed. - Patient Data Vitals - Most Recent: Last Vital Signs Temp 36.6 C 09/30/17 05:00 Pulse 69 09/30/17 05:00 Resp 15 09/30/17 05:00 BP 101/57 L 09/30/17 05:00 Pulse Ox 96 09/30/17 05:00 Lab Results - Last 24 hrs: Laboratory Results - last 24 hr 09/29/17 09/30/17 Range/Units 08:23 06:25 Hgb 9.1 L (12.0-16.0) g/dL Hct 28.3 L (36.0-46.0) % Cord ABG pH 7.242 (7.18-7.38) Cord ABG Base Excess -8 (-10--2) Cord VBG pH 7.224 L (7.25-7.45) Cord VBG Base Excess -9 (-10--2) Med Orders - Current: Current Medications Acetaminophen (Tylenol Extra Strength) 500 mg PO Q4H PRN PRN Reason: Pain Last Admin: 09/30/17 02:37 Dose: 500 mg Acetaminophen (Tylenol Extra Strength) 1,000 mg PO Q4H PRN PRN Reason: Pain Last Admin: 09/29/17 21:48 Dose: 1,000 mg Benzocaine/Menthol (Dermoplast Pain Relief 20%-0.5% [place]) 78 gm TOP ASDIRECTED PRN PRN Reason: Perineal Comfort Measure Bisacodyl (Dulcolax) 10 mg RECTAL .ONCE PRN PRN Reason: Constipation Docusate Sodium (Colace) 100 mg PO BID PRN PRN Reason: Constipation Emollient Ointment (Lansinoh Hpa) 0 gm TOP ASDIRECTED PRN PRN Reason: Sore Nipples Ibuprofen (Motrin) 400 mg PO Q4H PRN PRN Reason: Pain Ibuprofen (Motrin) 800 mg PO Q6H PRN PRN Reason: Pain Last Admin: 09/30/17 02:37 Dose: 800 mg Methylergonovine Maleate (Methergine) 0.2 mg IM .ONCE PRN PRN Reason: Excessive Vaginal Bleeding Witch Sylvie (Tucks) 1 pad TOP ASDIRECTED PRN PRN Reason: comfort care Discontinued Medications Butorphanol Tartrate (Stadol) 1 mg IVPUSH Q1H PRN PRN Reason: Pain Carboprost Tromethamine (Hemabate Ds) 250 mcg IM ASDIRECTED PRN PRN Reason: Post Hemorrhage Lactated Ringer's (Ringers, Lactated) 1,000 mls @ 150 mls/hr IV ASDIRECTED NORTH Oxytocin/Sodium Chloride (Oxytocin 30 Unit/500 Ml-Ns) 30 unit in 500 mls @ 999 mls/hr IV TITRATE NORTH Tranexamic Acid 1,000 mg/ (Sodium Chloride) 110 mls @ 660 mls/hr IV ONETIME PRN PRN Reason: Bleeding Oxytocin/Sodium Chloride (Oxytocin 30 Unit/500 Ml-Ns) Confirm Administered Dose 30 unit in 500 mls @ as directed .ROUTE .[facility] ONE Stop: 09/29/17 08:13 Lidocaine HCl (Xylocaine 1%) 50 ml INJECT .ONCE PRN PRN Reason: Laceration repair Methylergonovine Maleate (Methergine) 0.2 mg IM ASDIRECTED PRN PRN Reason: Post Hemorrhage Misoprostol (Cytotec) 200 mcg PO .ONCE PRN PRN Reason: Post Hemorrhage Nalbuphine HCl (Nubain) 10 mg IVPUSH Q1H PRN PRN Reason: Pain (severe 7-10) Sodium Chloride (Saline Flush) 10 ml FLUSH ASDIRECTED PRN PRN Reason: Keep Vein Open Sodium Chloride (Saline Flush) 2.5 ml FLUSH ASDIRECTED PRN PRN Reason: Keep Vein Open Sterile Water (Sterile Water For Irrigation) 1,000 ml IRR ASDIRECTED PRN PRN Reason: delivery *Q Meaningful Use (DIS) - VTE *Q VTE Criteria *Q: - Stroke *Q Stroke Criteria *Q: - AMI *Q AMI Criteria *Q:
--- NOTE | 2017-09-30 09:02 | PCM.PNPP ---
- General Info Date of Service: 09/30/17 Functional Status: Reports: Pain Controlled, Tolerating Diet, Ambulating, Urinating - Review of Systems General: Reports: No Symptoms HEENT: Reports: No Symptoms Pulmonary: Reports: No Symptoms Cardiovascular: Reports: No Symptoms Gastrointestinal: Reports: No Symptoms Genitourinary: Reports: No Symptoms Musculoskeletal: Reports: No Symptoms Skin: Reports: No Symptoms Neurological: Reports: No Symptoms Psychiatric: Reports: No Symptoms - General Info Date of Service: 09/30/17 - Patient Data Vital Signs - Most Recent: Last Vital Signs Temp 36.6 C 09/30/17 05:00 Pulse 69 09/30/17 05:00 Resp 15 09/30/17 05:00 BP 101/57 L 09/30/17 05:00 Pulse Ox 96 09/30/17 05:00 Lab Results - Last 24 Hours: Laboratory Results - last 24 hr 09/29/17 09/30/17 Range/Units 08:23 06:25 Hgb 9.1 L (12.0-16.0) g/dL Hct 28.3 L (36.0-46.0) % Cord ABG pH 7.242 (7.18-7.38) Cord ABG Base Excess -8 (-10--2) Cord VBG pH 7.224 L (7.25-7.45) Cord VBG Base Excess -9 (-10--2) Med Orders - Current: Current Medications Acetaminophen (Tylenol Extra Strength) 500 mg PO Q4H PRN PRN Reason: Pain Last Admin: 09/30/17 02:37 Dose: 500 mg Acetaminophen (Tylenol Extra Strength) 1,000 mg PO Q4H PRN PRN Reason: Pain Last Admin: 09/29/17 21:48 Dose: 1,000 mg Benzocaine/Menthol (Dermoplast Pain Relief 20%-0.5% [place]) 78 gm TOP ASDIRECTED PRN PRN Reason: Perineal Comfort Measure Bisacodyl (Dulcolax) 10 mg RECTAL .ONCE PRN PRN Reason: Constipation Docusate Sodium (Colace) 100 mg PO BID PRN PRN Reason: Constipation Emollient Ointment (Lansinoh Hpa) 0 gm TOP ASDIRECTED PRN PRN Reason: Sore Nipples Ibuprofen (Motrin) 400 mg PO Q4H PRN PRN Reason: Pain Ibuprofen (Motrin) 800 mg PO Q6H PRN PRN Reason: Pain Last Admin: 09/30/17 02:37 Dose: 800 mg Methylergonovine Maleate (Methergine) 0.2 mg IM .ONCE PRN PRN Reason: Excessive Vaginal Bleeding [place] (Tucks) 1 pad TOP ASDIRECTED PRN PRN Reason: comfort care Discontinued Medications Butorphanol Tartrate (Stadol) 1 mg IVPUSH Q1H PRN PRN Reason: Pain Carboprost Tromethamine (Hemabate Ds) 250 mcg IM ASDIRECTED PRN PRN Reason: Post Hemorrhage Lactated Ringer's (Ringers, Lactated) 1,000 mls @ 150 mls/hr IV ASDIRECTED NORTH Oxytocin/Sodium Chloride (Oxytocin 30 Unit/500 Ml-Ns) 30 unit in 500 mls @ 999 mls/hr IV TITRATE NORTH Tranexamic Acid 1,000 mg/ (Sodium Chloride) 110 mls @ 660 mls/hr IV ONETIME PRN PRN Reason: Bleeding Oxytocin/Sodium Chloride (Oxytocin 30 Unit/500 Ml-Ns) Confirm Administered Dose 30 unit in 500 mls @ as directed .ROUTE .[facility] ONE Stop: 09/29/17 08:13 Lidocaine HCl (Xylocaine 1%) 50 ml INJECT .ONCE PRN PRN Reason: Laceration repair Methylergonovine Maleate (Methergine) 0.2 mg IM ASDIRECTED PRN PRN Reason: Post Hemorrhage Misoprostol (Cytotec) 200 mcg PO .ONCE PRN PRN Reason: Post Hemorrhage Nalbuphine HCl (Nubain) 10 mg IVPUSH Q1H PRN PRN Reason: Pain (severe 7-10) Sodium Chloride (Saline Flush) 10 ml FLUSH ASDIRECTED PRN PRN Reason: Keep Vein Open Sodium Chloride (Saline Flush) 2.5 ml FLUSH ASDIRECTED PRN PRN Reason: Keep Vein Open Sterile Water (Sterile Water For Irrigation) 1,000 ml IRR ASDIRECTED PRN PRN Reason: delivery - Infant Interaction Infant Disposition, : [place] in Room with Family Interaction: Holding Infant Feeding: Breastfed Infant; Nursed Well Support Person: Significant Other - Recovery Exam Fundal Tone: Firm Fundal Level: 1 Fingerbreadths Below Umbilicus Fundal Placement: Midline Lochia Amount: Small Lochia Color: Rubra/Red Perineum Description: Intact, Minimal Bruising/Swelling Episiotomy/Laceration: Approximated Bladder Status: Voiding Urinary Elimination: Voided - Exam General: Alert, Oriented HEENT: Pupils Equal Neck: Supple Lungs: Normal Respiratory Effort GI/Abdominal Exam: Soft, Non-Tender, No Organomegaly, No Distention Extremities: Normal Inspection, Normal Range of Motion, No Pedal Edema Skin: Warm, Dry, Intact Neurological: No New Focal Deficit Psy/Mental Status: Alert, Normal Affect, Normal Mood - Problem List & Annotations (1) Vaginal delivery following previous section, delivered SNOMED Code(s): 550644408 Code(s): O34.219 - MATERNAL CARE FOR UNSP TYPE SCAR FROM PREVIOUS DEL Status: Acute Current Visit: Yes - Problem List Review Problem List Initiated/Reviewed/Updated: Yes - My Orders Last 24 Hours: My Active Orders 09/29/17 09:31 Patient Status [ADT] Routine May Shower [RC] ASDIRECTED Up ad Caitlyn [RC] ASDIRECTED Vital Signs [RC] PER UNIT ROUTINE Acetaminophen [Tylenol Extra Strength] 1,000 mg PO Q4H PRN Acetaminophen [Tylenol Extra Strength] 500 mg PO Q4H PRN Benzocaine/Menthol [Dermoplast Pain Relief 20%-0.5% [place]] 78 gm TOP ASDIRECTED PRN Bisacodyl [Dulcolax] 10 mg RECTAL .ONCE PRN Docusate Sodium [Colace] 100 mg PO BID PRN Ibuprofen [Motrin] 400 mg PO Q4H PRN Ibuprofen [Motrin] 800 mg PO Q6H PRN Lanolin [Lansinoh HPA] See Dose Instructions TOP ASDIRECTED PRN Methylergonovine [Methergine] 0.2 mg IM .ONCE PRN Witch Sylvie [Tucks] 1 pad TOP ASDIRECTED PRN Assess Lochia [WOMSER] Per Unit Routine Assess Uterine Involution [WOMSER] Per Unit Routine Peripheral IV Discontinue [OM.PC] Routine Resuscitation Status Routine 09/29/17 09:32 Perineal Care [OM.PC] Per Unit Routine 09/29/17 Lunch Regular Diet [DIET] 09/30/17 08:54 Ready for Discharge [RC] PER UNIT ROUTINE - Assessment Assessment:: PPD#1 after successful . Stable, minimal lochia, would like to go home. She has good support at home. - Plan Plan:: Discharge instructions reviewed. Continue iron and vitamins.
[2017-09-30 10:17] VITALS: BP 96/55
== END 2017-09-30 13:26 | disposition home or self-care (01) | DRG 775 ==
LOC: MW.OBCHECK 07:30 → MW.OB 07:33 → MW.OBCHECK 07:54 → MW.OB 07:54 → OBSVTOIN 08:23 → MW.OB 08:36
PROVIDERS: ADMIT Obstetrics & Gynecology; ATTEND Obstetrics & Gynecology
PROC: 10E0XZZ Delivery of Products of Conception, External Approach (ICD-10-PCS; principal; 2017-09-29)
PROC: 0W8NXZZ Division of Female Perineum, External Approach (ICD-10-PCS; 2017-09-29)
PROC: 0HQ9XZZ Repair Perineum Skin, External Approach (ICD-10-PCS; 2017-09-29)
DX: O34.211 Maternal care for low transverse scar from previous cesarean delivery (principal); Z3A.38 38 weeks gestation of pregnancy; Z37.0 Single live birth
CPT/HCPCS: 36415; 59025; 59409; 82803; 85014; 85018; 85027; 86850; 86900; 86901; A9270-GY; J2590

== ENCOUNTER 2017-12-19 18:16 | Emergency (ER) | payer MEDICAID ==
--- NOTE | 2017-12-19 19:05 | EDM.PDOC ---
ED HPI GENERAL MEDICAL PROBLEM - General Chief Complaint: Skin Complaint Stated Complaint: RASH/BUMPS ON FACE, LEGS, AND IN MOUTH Time Seen by Provider: 12/19/17 18:55 Source of Information: Reports: Patient History Limitations: Reports: No Limitations - History of Present Illness INITIAL COMMENTS - FREE TEXT/NARRATIVE: HISTORY AND PHYSICAL: History of present illness: Patient is a 27-year-old female presents to the emergency room today with complaints of multiple sores throughout her body. She says they do itch and she has had been able to squeeze drainage from them. Or, chills, chest pain or shortness of breath. Denies any abdominal pain, nausea, vomiting, diarrhea or constipation. She has not had any new sleeping arrangements or been exposed to any illnesses. No new detergents, products or materials. She does have a history of IV drug use but has not used any in 1 month. Review of systems: As per history of present illness and below otherwise all systems reviewed and negative. Past medical history: As per history of present illness and as reviewed below otherwise noncontributory. Surgical history: As per history of present illness and as reviewed below otherwise noncontributory. Social history: No reported history of drug or alcohol abuse. Family history: As per history of present illness and as reviewed below otherwise noncontributory. Physical exam: General: Well-developed and well-nourished 37 she'll female. Alert and oriented. Nontoxic appearing and in no acute distress. HEENT: Atraumatic, normocephalic, pupils equal and reactive bilaterally, negative for conjunctival pallor or scleral icterus, mucous membranes moist, throat clear, neck supple, nontender, trachea midline. No drooling or trismus noted. No meningeal signs Lungs: Clear to auscultation, breath sounds equal bilaterally, chest nontender. Heart: S1S2, regular rate and rhythm without overt murmur Abdomen: Soft, nondistended, nontender. Negative for masses or hepatosplenomegaly. Negative for costovertebral tenderness. Pelvis: Stable nontender. Genitourinary: Deferred. Rectal: Deferred. Skin: Multiple sporadic small circular lesions, some with a pustular type center. This is not in any form of pattern or cluster. Oral canker sore noted below 24-25 along gum line. Extremities: Atraumatic, negative for cords or calf pain. Neurovascular unremarkable. Neuro: Awake, alert, oriented. Cranial nerves II through XII unremarkable. Cerebellum unremarkable. Motor and sensory unremarkable throughout. Exam nonfocal. Notes: We'll treat her with Bactrim DS. Miracle mouth wash for the oral canker sores to bottom left gumline. Encouraged her to use Benadryl [id number]. Supportive care measures were reviewed and discussed. She will follow up with her primary care provider in the next 1-2 days. She voices understanding and is agreeable to plan of care. She denies any further questions at this time. Diagnostics: [] Therapeutics: [] Impression: Dermatitis Plan: 1. Use the antibiotic as prescribed. Please take [id number]-[id number] Benadryl for the next 2-3 days as directed. 2. Avoid any hot showers as this can cause increased itching. Avoid shaving until these lesions have cleared. 3. Follow-up with your primary care provider in the next 1-2 days. Return to the ED as needed and as discussed. Definitive disposition and diagnosis as appropriate pending reevaluation and review of above. Generalized Pain Score (Numeric/FACES): 8 - Related Data Allergies Allergy/AdvReac Type Severity Reaction Status Date / Time acetaminophen Allergy Hives Verified 12/19/17 18:42 [From Tylenol-Codeine] codeine Allergy Hives Verified 12/19/17 18:42 [From Tylenol-Codeine] Home Meds: Home Meds PNV95/Ferrous Fumarate/FA [ Tablet] 1 tab PO DAILY 09/13/17 [History] Past Medical History - Past Health History Medical/Surgical History: Denies Medical/Surgical History Cardiovascular History: Reports: Other (See Below) Other Cardiovascular History: Mitral valve prolapse. [employer] History: Reports: , Therapeutic Other OB/BYN History: Ovarian Cysts Psychiatric History: Reports: Addiction Other Psychiatric History: pt has been through treatment before Oncologic (Cancer) History: Reports: None - Infectious Disease History Infectious Disease History: Reports: None - Past Surgical History Cardiovascular Surgical History: Reports: None Female Surgical History: Reports: Section Social & Family History - Family History Family Medical History: Noncontributory - Tobacco Use Smoking Status *Q: Never Smoker - Caffeine Use Caffeine Use: Reports: Coffee, Soda, Tea - Recreational Drug Use Recreational Drug Use: No ED ROS GENERAL - Review of Systems Review Of Systems: ROS reveals no pertinent complaints other than HPI. ED EXAM, SKIN/RASH Exam: See Below (See dictation) Course - Vital Signs Last Recorded V/S: Last Vital Signs Temp 97.5 F 12/19/17 18:42 Pulse 109 H 12/19/17 18:42 Resp 16 12/19/17 18:42 BP 114/76 12/19/17 18:42 Pulse Ox 97 12/19/17 18:42 Departure - Departure Time of Disposition: 19:06 Disposition: Home, Self-Care 01 Clinical Impression: Dermatitis - Discharge Information Instructions: Contact Dermatitis, [id number] Referrals: PCP,None [Primary Care Provider] - Additional Instructions: The following information is given to patients seen in the emergency department who are being discharged to home. This information is to outline your options for follow-up care. We provide all patients seen in our emergency department with a follow-up referral. The need for follow-up, as well as the timing and circumstances, are variable depending upon the specifics of your emergency department visit. If you don't have a primary care physician on staff, we will provide you with a referral. We always advise you to contact your personal physician following an emergency department visit to inform them of the circumstance of the visit and for follow-up with them and/or the need for any referrals to a consulting specialist. The emergency department will also refer you to a specialist when appropriate. This referral assures that you have the opportunity for follow-up care with a specialist. All of these measure are taken in an effort to provide you with optimal care, which includes your follow-up. Under all circumstances we always encourage you to contact your private physician who remains a resource for coordinating your care. When calling for follow-up care, please make the office aware that this follow-up is from your recent emergency room visit. If for any reason you are refused follow-up, please contact the [facility] Emergency Department at and asked to speak to the emergency department charge nurse. [facility] [address] [place] [id number] 1. Use the antibiotic as prescribed. Please take [id number] Benadryl for the next 2-3 days as directed. 2. Avoid any hot showers as this can cause increased itching. Avoid shaving until these lesions have cleared. 3. Follow-up with your primary care provider in the next 1-2 days. Return to the ED as needed and as discussed.
[2017-12-19 19:25] VITALS: BP 130/90
== END 2017-12-19 19:15 | disposition home or self-care (01) ==
LOC: MW.ED 18:16
DX: L30.9 Dermatitis, unspecified (principal); Z88.5 Allergy status to narcotic agent; Z88.8 Allergy status to other drugs, medicaments and biological substances
CPT/HCPCS: 99282